=== PATIENT | female | born 1965 | race Two or more races ===

== ENCOUNTER 2016-05-11 12:12 | Emergency (ER) | payer OTHER ==
[2016-05-11 12:23] VITALS: BP 132/95; PULSE 75; TEMP 97.8; BMI 39.9
[2016-05-11] MEDS ORDERED: ALBUTEROL SO4 2.5/IPRATROPIUM 0.5 INH SOL 3 ML VIAL.NEB. NEB ONE (13:49)
--- NOTE | 2016-05-11 14:04 | PDOC ---
History of Present Illness - General Chief Complaint: Cold Symptoms Stated Complaint: COUGH, FLU LIKE SYMPTOMS Time Seen by Provider: 05/11/16 13:22 History Source: Patient Exam Limitations: No Limitations - History of Present Illness Initial Comments: 05/11/16 13:59 50 yr female obese history of HTN, high cholesterol, hypthyroid, depression, presents with cough for 2 weeks. Pt finihsed a Zpack yesterday and still having cough. no fever no chest pain, has mild exp wheezing. Timing/Duration: reports: intermittent Severity: reports: mild Possible Cause: Yes: occasional episodes (bronchitis) Associated Symptoms: reports: cough Past History - Past Medical History Allergies/Adverse Reactions: Allergies Allergy/AdvReac Type Severity Reaction Status Date / Time No Known Allergies Allergy Verified 05/11/16 12:23 Home Medications: Ambulatory Orders Aspirin [Aspirin EC] 81 mg PO DAILY 04/02/15 Doxepin HCl [Sinequan -] 10 mg PO DAILY 04/02/15 Haloperidol [Haldol -] 5 mg PO DAILY 04/02/15 Levothyroxine [Synthroid -] 100 mcg PO DAILY 04/02/15 [place] Carbonate [Eskalith -] 450 mg PO DAILY 04/02/15 Metformin HCl [Glucophage] 500 mg PO BID #30 tablet 04/02/15 Sertraline HCl [Zoloft] 100 mg PO DAILY 04/02/15 Lisinopril/Hydrochlorothiazide [Lisinopril-Hctz 10-12.5 mg Tab] 0 each PO ASDIR 10/09/15 Glipizide [Glucotrol -] 5 mg PO BID@0700,1630 #60 tablet 10/11/15 Miconazole Nitrate [Monistat-7 Vaginal Cream -] 1 applic VG HS #1 tube 10/11/15 Miconazole Nitrate [Monistat-7] 100 mg PV HS #1 supp.vag 10/11/15 Albuterol Sulfate Inhaler - [Ventolin Hfa Inhaler -] 1 - 2 inh PO QID #1 inhaler 05/11/16 Prednisone [Deltasone -] 20 mg PO DAILY #3 tablet 05/11/16 Diabetes: Yes HTN: Yes Hypercholesterolemia: Yes Psychiatric Problems: Yes (depression) Thyroid Disease: Yes Other medical history: bronchitis - Surgical History Abdominal Surgery: Yes (HERNIA) - Immunization History Immunization Up to Date: Yes - Psycho/Social/Smoking Cessation Hx Anxiety: No Suicidal Ideation: No Smoking History: Never smoked Have you smoked in the past 12 months: No Information on smoking cessation initiated: No Hx Alcohol Use: No Drug/Substance Use Hx: No Substance Use Type: None Respiratory Specific PMHX - Complaint Specific PMHX Bronchitis: Yes Review of Systems - Review of Systems Able to Perform ROS?: Yes Is the patient limited Estonian proficient: No Constitutional: Yes: Symptoms Reported Respiratory: Yes: Cough *Physical Exam - Vital Signs Last Vital Signs Temp Pulse Resp BP Pulse Ox 97.8 F 75 18 132/95 97 05/11/16 12:20 05/11/16 12:20 05/11/16 12:20 05/11/16 12:20 05/11/16 12:20 - Physical Exam General Appearance: Yes: Nourished, Appropriately Dressed, Obese HEENT: positive: EOMI, LESLEY, TMs Normal, Pharynx Normal Neck: positive: Supple. negative: Decreased range of motion, Lymphadenopathy (R ), Lymphadenopathy (L) Respiratory/Chest: positive: Chest Tender (anteriorly TTP), Wheezing Cardiovascular: positive: Regular Rhythm, Regular Rate Musculoskeletal: positive: Normal Inspection Extremity: positive: Normal Capillary Refill, Normal Inspection, Normal Range of Motion Integumentary: positive: Normal Color, Dry, Warm Neurologic: positive: Fully Oriented, Alert, Normal Mood/Affect, Normal Response , Motor Strength 5/5 ED Treatment Course - Medications Given in the ED: ED Medications Discontinued Medications Generic Name Dose Route Start Last Admin Trade Name Isaíasq PRN Reason Stop Dose Admin Albuterol/Ipratropium 1 amp 05/11/16 13:49 05/11/16 13:56 Duoneb - NEB 05/11/16 13:50 1 amp ONCE ONE Administration Medical Decision Making - Medical Decision Making 05/11/16 14:01 cc: cough wheezing afebrile no acute distress, speaking clear sentences with similair cold symptoms will give duoneb dc on ventolin inhaler 05/11/16 14:02 05/11/16 14:03 *DC/Admit/Observation/Transfer Diagnosis at time of Disposition: Bronchitis - Discharge Dispostion Disposition: HOME Condition at time of disposition: Good - Prescriptions Prescriptions: Prednisone [Deltasone -] 20 mg PO DAILY #3 tablet Albuterol Sulfate Inhaler - [Ventolin Hfa Inhaler -] 1 - 2 inh PO QID #1 inhaler - Referrals Referrals: Koko Art MD [Primary Care Provider] - - Patient Instructions Additional Instructions: drink pleanty of water follow with your doctor in 2-3 days if not feeling better use the inhaler as prescribed monitor your blood sugar while taking prednisone return to ER for any worsening symptoms
[2016-05-11] MEDS ORDERED: predniSONE 20 MG TABLET (UD) PO ONE (14:05)
[2016-05-11] MEDS ORDERED: predniSONE 20 MG TABLET (UD) ONE (14:06)
== END 2016-05-11 14:19 | disposition home or self-care (01) ==
LOC: JERFT 12:12
PROC: 3E0F7GC Introduction of Other Therapeutic Substance into Respiratory Tract, Via Natural or Artificial Opening (ICD-10-PCS; principal; 2016-05-11)
DX: J40 Bronchitis, not specified as acute or chronic (principal)
CPT/HCPCS: 99281-25

== ENCOUNTER 2016-06-27 19:34 | Emergency (ER) | payer OTHER ==
--- NOTE | 2016-06-27 19:44 | PDOC ---
Rapid Medical Evaluation Time Seen by Provider: 06/27/16 19:39 Medical Evaluation: Allergies Allergy/AdvReac Type Severity Reaction Status Date / Time No Known Allergies Allergy Verified 05/11/16 12:23 06/27/16 19:40 I have performed a brief in-person evaluation of this patient. The patient presents with a chief complaint of: cough with left sided chest pain x 3 days Pertinent physical exam findings: hx htn, dm, VSS I have ordered the following: ekg, cxr The patient will proceed to the ED for further evaluation.
[2016-06-27 19:55] VITALS: BP 134/66; PULSE 72; TEMP 97.9; BMI 40.3
[2016-06-27] MEDS ORDERED: KETOROLAC TROMETHAMINE 30 MG/1 ML VIAL IVPUSH ONE (20:13)
--- NOTE | 2016-06-27 20:13 | PDOC ---
History of Present Illness - General History Source: Patient Exam Limitations: No Limitations - History of Present Illness Initial Comments: 06/27/16 20:21 The patient is a 50 year old female with significant past medical history of hypertension, hyperlipidemia, and diabetes who presents to the ED with 3 days of left-sided chest pain. Patient reports her pain is exacerbated with movement of the left arm and no pain when she is still. Patient denies trauma to the area or heavy lifting. She denies diaphoresis, lightheadedness, SOB, jaw pain, shoulder pain, arm pain, nausea, or vomiting. She also has complaints of a worsening dry cough. The patient denies fever, chills, abdominal pain, and diarrhea. Allergies: NKDA Social History: Denies alcohol, tobacco, or drug use. Past Surgical History: hernia repair PCP: Dr. Neda Huerta <J[place]ica Joy - Last Filed: 06/27/16 20:23> - General History Source: Patient <Gilson Coppola - Last Filed: 06/27/16 22:56> - General Chief Complaint: Chest Pain Stated Complaint: RESPIRATORY Time Seen by Provider: 06/27/16 19:39 Past History <Jamaica Joy - Last Filed: 06/27/16 20:23> - Past Medical History Diabetes: Yes HTN: Yes Hypercholesterolemia: Yes Liver Disease: Yes (fatty liver) Psychiatric Problems: Yes (depression) Thyroid Disease: Yes Other medical history: arthritis - Surgical History Abdominal Surgery: Yes (HERNIA) - Immunization History Immunization Up to Date: Yes - Psycho/Social/Smoking Cessation Hx Anxiety: No Suicidal Ideation: No Smoking History: Never smoked Have you smoked in the past 12 months: No Hx Alcohol Use: No Drug/Substance Use Hx: No Substance Use Type: None <Gilson Coppola - Last Filed: 06/27/16 22:56> - Past Medical History Allergies/Adverse Reactions: Allergies Allergy/AdvReac Type Severity Reaction Status Date / Time No Known Allergies Allergy Verified 06/27/16 19:40 Home Medications: Ambulatory Orders Aspirin [Aspirin EC] 81 mg PO DAILY 04/02/15 Doxepin HCl [Sinequan -] 10 mg PO DAILY 04/02/15 Haloperidol [Haldol -] 5 mg PO DAILY 04/02/15 Levothyroxine [Synthroid -] 100 mcg PO DAILY 04/02/15 [place] Carbonate [Eskalith -] 450 mg PO DAILY 04/02/15 Metformin HCl [Glucophage] 500 mg PO BID #30 tablet 04/02/15 Sertraline HCl [Zoloft] 100 mg PO DAILY 04/02/15 Lisinopril/Hydrochlorothiazide [Lisinopril-Hctz 10-12.5 mg Tab] 0 each PO ASDIR 10/09/15 Glipizide [Glucotrol -] 5 mg PO BID@0700,1630 #60 tablet 10/11/15 Miconazole Nitrate [Monistat-7 Vaginal Cream -] 1 applic VG HS #1 tube 10/11/15 Miconazole Nitrate [Monistat-7] 100 mg PV HS #1 supp.vag 10/11/15 Albuterol Sulfate Inhaler - [Ventolin Hfa Inhaler -] 1 - 2 inh PO QID #1 inhaler 05/11/16 Prednisone [Deltasone -] 20 mg PO DAILY #3 tablet 05/11/16 Ibuprofen 800 mg PO TID #30 tablet 06/27/16 Methocarbamol [Robaxin -] 750 mg PO Q8H #30 tablet 06/27/16 Review of Systems - Review of Systems Able to Perform ROS?: Yes Comments:: 06/27/16 20:22 CONSTITUTIONAL: Absent: fever, chills, diaphoresis, generalized weakness, malaise, loss of appetite HEENT: Absent: rhinorrhea, nasal congestion, throat pain, throat swelling, difficulty swallowing, mouth swelling, ear pain, eye pain, visual Changes CARDIOVASCULAR: +left-sided chest pain Absent: syncope, palpitations, irregular heart rate, lightheadedness, peripheral edema RESPIRATORY: +cough Absent: shortness of breath, dyspnea with exertion, orthopnea, wheezing, stridor, hemoptysis GASTROINTESTINAL: Absent: abdominal pain, abdominal distension, nausea, vomiting, diarrhea, constipation, melena, hematochezia GENITOURINARY: Absent: dysuria, frequency, urgency, hesitancy, hematuria, flank pain, genital pain MUSCULOSKELETAL: Absent: myalgia, arthralgia, joint swelling SKIN: Absent: rash, itching, pallor NEUROLOGIC: Absent: headache, focal weakness or paresthesias, dizziness, unsteady gait, seizure, mental status changes, bladder or bowel incontinence PSYCHIATRIC: Absent: anxiety, depression, suicidal or homicidal ideation, hallucinations. <Jamaica Joy - Last Filed: 06/27/16 20:23> *Physical Exam - Vital Signs Last Vital Signs Temp Pulse Resp BP Pulse Ox 97.9 F 72 20 134/66 98 06/27/16 19:40 06/27/16 19:40 06/27/16 19:40 06/27/16 19:40 06/27/16 19:40 - Physical Exam Comments: 06/27/16 20:22 GENERAL: Well developed, well nourished. Awake and alert. No acute distress. HEENT: Normocephalic, atraumatic. PERRLA, EOMI. No conjunctival pallor. Sclera are non- icteric. Moist mucous membranes. Oropharynx is clear. NECK: Supple. Full ROM. No JVD. Carotid pulses 2+ and symmetric, without bruits. No thyromegaly. No lymphadenopathy. CARDIOVASCULAR: Regular rate and rhythm. No murmurs, rubs, or gallops. Distal pulses are 2+ and symmetric. PULMONARY: No evidence of respiratory distress. Lungs clear to auscultation bilaterally. No wheezing, rales or rhonchi. ABDOMINAL: Morbidly obese. Soft. Non-tender. Non-distended. No rebound or guarding. No organomegaly. Normoactive bowel sounds. MUSCULOSKELETAL Normal range of motion at all joints. No bony deformities or tenderness. No CVA tenderness. EXTREMITIES: No cyanosis. No clubbing. No edema. No calf tenderness. SKIN: Warm and dry. Normal capillary refill. No rashes. No jaundice. NEUROLOGICAL: Alert, awake, appropriate. Cranial nerves 2-12 intact. Moving all extremities. No gross focal neurological deficits. PSYCHIATRIC: Cooperative. Good eye contact. Appropriate mood and affect. <Jamaica Joy - Last Filed: 06/27/16 20:23> - Vital Signs Last Vital Signs Temp Pulse Resp BP Pulse Ox 97.9 F 72 20 134/66 98 06/27/16 19:40 06/27/16 19:40 06/27/16 19:40 06/27/16 19:40 06/27/16 19:40 <Gilson Coppola - Last Filed: 06/27/16 22:56> Heart Score/ECG Review - ECG Impressions Comment:: 06/27/16 20:22 NSR @79bpm Prolonged QT Abnormal ECG <J[place]ica Joy - Last Filed: 06/27/16 20:23> ED Treatment Course - LABORATORY CBC & Chemistry Diagram: 06/27/16 21:25 06/27/16 21:25 <Gilson Coppola - Last Filed: 06/27/16 22:56> Medical Decision Making - Medical Decision Making 06/27/16 22:56 Dr. Coppola: The scribe's documentation has been prepared under my direction and personally reviewed by me in its entirery. I confirm that the note above accurately reflects all work, treatment, procedures, and medical decision making performed by me. <Gilson Coppola - Last Filed: 06/27/16 22:56> *DC/Admit/Observation/Transfer - Attestations Scribe Attestion: 06/27/16 20:23 Documentation prepared by [place] Joy, acting as medical records supervisor for Gilson Coppola MD <J[place] Joy - Last Filed: 06/27/16 20:23> - Discharge Dispostion Admit: No <Gilson Coppola - Last Filed: 06/27/16 22:56> Diagnosis at time of Disposition: Chest wall pain - Discharge Dispostion Disposition: HOME Condition at time of disposition: Stable - Prescriptions Prescriptions: Ibuprofen 800 mg PO TID #30 tablet Methocarbamol [Robaxin -] 750 mg PO Q8H #30 tablet - Referrals Referrals: Neda Huerta [Primary Care Provider] - - Patient Instructions Printed Discharge Instructions: DI for Musculoskeletal Pain
[2016-06-27] MEDS ORDERED: KETOROLAC TROMETHAMINE 30 MG/1 ML VIAL ONE (21:25)
[2016-06-27 22:19] LABS: BASOPHIL 0.8 % (0-2.0); EOSINOPHIL 2.6 % (0-4.5); MCH 24.6 pg (25.7-33.7); MCHC 32.1 g/dl (32.0-36.0); MEAN CELL VOLUME 76.6 fl (80-96); MEAN PLT VOLUME 8.9 fl (7.5-11.1); PLATELET COUNT 212 K/MM3 (134-434); RDW 15.5 % (11.6-15.6); WHITE BLOOD COUNT 9.4 K/mm3 (4.0-10.0)
[2016-06-27 22:34] LABS: ALBUMIN 3.6 g/dl (3.4-5.0); ANION GAP 8 (8-16); CALCIUM 9.1 mg/dL (8.5-10.1); CO2 29 mmol/L (21-32); CREATININE 0.7 mg/dL (0.55-1.02); GLUCOSE,RANDOM 275 mg/dL (74-106); SGOT/AST 54 U/L (15-37); SGPT/ALT 68 U/L (12-78)
[2016-06-27 22:38] LABS: ALK PHOS 141 U/L (45-117); BILIRUBIN,TOTAL 0.2 mg/dL (0.2-1.0); TOT PROT 7.4 g/dl (6.4-8.2); TROPONIN I < 0.02 ng/ml (0.00-0.05)
--- NOTE | 2016-06-28 14:16 | EKG ---
Test Reason : Blood Pressure : / mmHG Vent. Rate : 079 BPM Atrial Rate : 079 BPM P-R Int : 152 ms QRS Dur : 084 ms QT Int : 420 ms P-R-T Axes : 037 017 030 degrees QTc Int : 481 ms NORMAL SINUS RHYTHM PROLONGED QT ABNORMAL ECG WHEN COMPARED WITH ECG OF 09-OCT-2015 16:38, NONSPECIFIC T WAVE ABNORMALITY HAS REPLACED INVERTED T WAVES IN ANTERIOR LEADS Confirmed by ELIA WALKER, VENANCIO ([id number]) on 06/28/2016 2:15:43 PM Referred By: Confirmed By:VENANCIO RODRIGEZ MD
== END 2016-06-27 23:08 | disposition home or self-care (01) ==
LOC: JER 19:34
PROC: 3E0333Z Introduction of Anti-inflammatory into Peripheral Vein, Percutaneous Approach (ICD-10-PCS; principal; 2016-06-27)
DX: R07.89 Other chest pain (principal); I10 Essential (primary) hypertension; E78.5 Hyperlipidemia, unspecified; E11.9 Type 2 diabetes mellitus without complications; K76.0 Fatty (change of) liver, not elsewhere classified; F32.9 Major depressive disorder, single episode, unspecified; E07.9 Disorder of thyroid, unspecified; E66.01 Morbid (severe) obesity due to excess calories; Z68.41 Body mass index [BMI] 40.0-44.9, adult
CPT/HCPCS: 36415; 71020-TC; 80053; 82550; 82553; 84484; 85025; 93005; 93010; 96374; 99283-25

== ENCOUNTER 2017-06-01 19:00 | Emergency (ER) | payer OTHER ==
--- NOTE | 2017-06-01 19:16 | PDOC ---
Rapid Medical Evaluation Time Seen by Provider: 06/01/17 19:12 Medical Evaluation: Allergies Allergy/AdvReac Type Severity Reaction Status Date / Time No Known Allergies Allergy Verified 06/27/16 19:40 I have performed a brief in-person evaluation of this patient. The patient presents with a chief complaint of: headache on and off for "a long time". Pertinent physical exam findings: none I have ordered the following: nothing The patient will proceed to the ED for further evaluation.
[2017-06-01 19:17] VITALS: BP 118/73; PULSE 77; TEMP 98; BMI 37.2
[2017-06-01] MEDS ORDERED: IBUPROFEN 600 MG TABLET (FP) PO ONE ×2 (19:34→19:36)
--- NOTE | 2017-06-01 19:38 | PDOC ---
History of Present Illness - General Chief Complaint: Headache Stated Complaint: HEADACHE Time Seen by Provider: 06/01/17 19:12 History Source: Patient Exam Limitations: No Limitations - History of Present Illness Initial Comments: 06/01/17 19:34 51 yr female multiple medical problems presents to ER with one year on and off headache to the back of her head. Pt has no headache now. Pt states she came to the ER today because her is a patient in the ER. Pt has no fever no chills no dizzyness. Pt ambulatory with steady gait. 06/03/17 07:48 Past History - Past Medical History Allergies/Adverse Reactions: Allergies Allergy/AdvReac Type Severity Reaction Status Date / Time No Known Allergies Allergy Verified 06/27/16 19:40 Home Medications: Ambulatory Orders Aspirin [Aspirin EC] 81 mg PO DAILY 04/02/15 Doxepin HCl [Sinequan -] 10 mg PO DAILY 04/02/15 Haloperidol [Haldol -] 5 mg PO DAILY 04/02/15 Levothyroxine [Synthroid -] 100 mcg PO DAILY 04/02/15 [place] Carbonate [Eskalith -] 450 mg PO DAILY 04/02/15 Metformin HCl [Glucophage] 500 mg PO BID #30 tablet 04/02/15 Sertraline HCl [Zoloft] 100 mg PO DAILY 04/02/15 Lisinopril/Hydrochlorothiazide [Lisinopril-Hctz 10-12.5 mg Tab] 0 each PO ASDIR 10/09/15 Glipizide [Glucotrol -] 5 mg PO BID@0700,1630 #60 tablet 10/11/15 Miconazole Nitrate [Monistat-7 Vaginal Cream -] 1 applic VG HS #1 tube 10/11/15 Miconazole Nitrate [Monistat-7] 100 mg PV HS #1 supp.vag 10/11/15 Albuterol Sulfate Inhaler - [Ventolin Hfa Inhaler -] 1 - 2 inh PO QID #1 inhaler 05/11/16 predniSONE [Deltasone -] 20 mg PO DAILY #3 tablet 05/11/16 Ibuprofen 800 mg PO TID #30 tablet 06/27/16 Methocarbamol [Robaxin -] 750 mg PO Q8H #30 tablet 06/27/16 COPD: No Diabetes: Yes HTN: Yes Hypercholesterolemia: Yes Liver Disease: Yes (fatty liver) Psychiatric Problems: Yes (depression) Thyroid Disease: Yes - Surgical History Abdominal Surgery: Yes - Immunization History Immunization Up to Date: Yes - Suicide/Smoking/Psychosocial Hx Smoking History: Never smoked Have you smoked in the past 12 months: No Information on smoking cessation initiated: No Hx Alcohol Use: No Drug/Substance Use Hx: No Substance Use Type: None Neuro Specific PMHX - Complaint Specific PMHX Glaucoma: No Herniated Disk: No Laminectomy: No Migraine: No Multiple Sclerosis: No Neuropathy: No TIA: No Review of Systems - Review of Systems Able to Perform ROS?: Yes Is the patient limited [place] proficient: No Constitutional: No: Symptoms Reported HEENTM: No: Symptoms Reported Respiratory: No: Symptoms reported Cardiac (ROS): No: Symptoms Reported ABD/GI: No: Symptoms Reported : No: Symptoms Reported Musculoskeletal: No: Symptoms Reported Integumentary: No: Symptoms Reported Neurological: Yes: Symptoms reported *Physical Exam - Vital Signs Last Vital Signs Temp Pulse Resp BP Pulse Ox 98 F 77 17 118/73 97 06/01/17 19:14 06/01/17 19:14 06/01/17 19:14 06/01/17 19:14 06/01/17 19:14 - Physical Exam General Appearance: Yes: Nourished, Appropriately Dressed HEENT: positive: EOMI, LESLEY, TMs Normal, Pharynx Normal, Nasal Congestion (mild) . negative: Sinus Tenderness, Hearing Decreased, TM Bulging, TM Dull, TM Erythema Neck: positive: Supple. negative: Tender, Lymphadenopathy (R), Lymphadenopathy (L) Respiratory/Chest: positive: Lungs Clear, Normal Breath Sounds Cardiovascular: positive: Regular Rhythm, Regular Rate Musculoskeletal: positive: Normal Inspection, Other (neg vetebral tenderness, FROM of the neck and head without pain ). negative: Vertebral Tenderness Extremity: positive: Normal Capillary Refill, Normal Inspection, Normal Range of Motion Integumentary: positive: Normal Color, Dry, Warm Neurologic: positive: executive meeting manager II-XII NML intact, Fully Oriented, Alert, Normal Mood/ Affect, Normal Response, Motor Strength 5/5, Finger to Nose (intact, neg rhomberg steady gait ), Other. negative: Facial Droop, Confused, Disoriented Medical Decision Making - Medical Decision Making 06/03/17 07:51 cc: one year on and off headaches, pt states the back of her head "where my ponytail is" intermittent headaches, denies any pattern however pt states at night they are worse pt has no headache at present pt has stable vitals no dizzyness, no neck pain no changes in vision pt has mild nasal congestion and mild sinus pressure no fever pt is to follow with her PMD I have also given her a neurologist name to follow with daughter and pt agree with plan of care dc with strict inst for follow up there is no indication for a head CT in the ER today, as pt is asymptomatic. *DC/Admit/Observation/Transfer Diagnosis at time of Disposition: Headache Qualifiers: Headache type: tension-type Headache chronicity pattern: unspecified pattern Intractability: not intractable Qualified Code(s): G44.209 - Tension-type headache, unspecified, not intractable - Discharge Dispostion Disposition: HOME Condition at time of disposition: Good - Referrals Referrals: Quynh Hunt MD [Primary Care Provider] - Tato To MD [Staff Physician] - - Patient Instructions Additional Instructions: drink pleanty of fluids take motrin 600mg every 8hrs for headache please follow with the neurologist if headaches continue or worsen - Post Discharge Activity
== END 2017-06-01 19:52 | disposition home or self-care (01) ==
LOC: JERFT 19:00
DX: G44.209 Tension-type headache, unspecified, not intractable (principal); I10 Essential (primary) hypertension; E11.9 Type 2 diabetes mellitus without complications; Z79.84 Long term (current) use of oral hypoglycemic drugs; F32.9 Major depressive disorder, single episode, unspecified; E03.9 Hypothyroidism, unspecified
CPT/HCPCS: 99281-25

== ENCOUNTER 2018-10-17 16:39 | Observation (INO) | payer OTHER ==
[2018-10-17 16:53] VITALS: BMI 31.6
--- NOTE | 2018-10-17 16:53 | PDOC ---
Rapid Medical Evaluation Time Seen by Provider: 10/17/18 16:46 Medical Evaluation: Allergies Allergy/AdvReac Type Severity Reaction Status Date / Time No Known Allergies Allergy Verified 06/27/16 19:40 10/17/18 16:46 I have performed a brief in-person evaluation of this patient. The patient presents with a chief complaint of: sent from PMD for overdose of INsulin-BASAGLAR- long acting insulin states may have taken ~ 100units ~ 3 hours ago, Pertinent physical exam findings: alert/ oriented / states has headache./ I have ordered the following: CBC, CMP, Acetone, IV The patient will proceed to the ED for further evaluation. Discharge Disposition - Diagnosis Overdose Qualifiers: Encounter type: initial encounter Injury intent: accidental or unintentional Qualified Code(s): T50.901A - Poisoning by unspecified drugs, medicaments and biological substances, accidental (unintentional), initial encounter - Referrals - Patient Instructions - Post Discharge Activity
[2018-10-17 17:46] LABS: BASO % 0.7 % (0-2.0); EOS % 1.7 % (0-4.5); HEMATOCRIT 43.2 % (32.4-45.2); HEMOGLOBIN 14.1 GM/dL (10.7-15.3); LYMPH % 42.3 % (8-40); MCH 24.5 pg (25.7-33.7); MCHC 32.8 g/dl (32.0-36.0); MEAN CELL VOLUME 74.8 fl (80-96); MEAN PLT VOLUME 9.1 fl (7.5-11.1); MONO % 5.4 % (3.8-10.2); NEUT % 49.9 % (42.8-82.8); PLATELET COUNT 177 K/MM3 (134-434); RBC 5.77 M/mm3 (3.60-5.2); WHITE BLOOD COUNT 6.3 K/mm3 (4.0-10.0)
--- NOTE | 2018-10-17 18:01 | PDOC ---
History of Present Illness - General Chief Complaint: Overdose Stated Complaint: LOW BLOOD SUGAR Time Seen by Provider: 10/17/18 16:46 History Source: Patient Exam Limitations: No Limitations - History of Present Illness Initial Comments: 10/17/18 17:29 53YOF with h/o IDDM (just started on Lantus 15U qAM this morning but also has been taking Januvia, metformin, and glipizide), HTN, HLD, and hypothyroidism who presents from Urgent Care as directed. She and her state that they were using her new Lantus SoloStar 100 U/mL solution pen-injector for the first time this morning when the believed he was supposed to twist the cap all the way out before injecting her, so he did this. He subsequently called the pharmacy and explained what he had done, and they determined that he had injected the entire contents of the pen (3 mL of the 100U/mL solution totaling 300U). The patient states she feels like her blood sugar is getting lower ( slight shakes/tremors) but she does not feel bad. They deny that this was in any way purposeful. Otherwise the patient has been feeling well lately. She does not check her blood sugar at home and thus did not check before the insulin injection. Past History - Past Medical History Allergies/Adverse Reactions: Allergies Allergy/AdvReac Type Severity Reaction Status Date / Time No Known Allergies Allergy Verified 10/17/18 16:47 Home Medications: Ambulatory Orders Aspirin 81 mg PO DAILY 10/17/18 Atorvastatin Ca [Lipitor] 20 mg PO HS 10/17/18 Fluconazole [Diflucan] 150 mg PO ONCE 10/17/18 Gabapentin 300 mg PO BID 10/17/18 Glipizide [Glipizide ER] 10 mg PO BID 10/17/18 Levothyroxine [Synthroid -] 112 mcg PO DAILY 10/17/18 Lisinopril/Hydrochlorothiazide [Lisinopril-Hctz 10-12.5 mg Tab] 1 each PO DAILY 10/17/18 [place] Carbonate [Eskalith -] 450 mg PO BID 10/17/18 Metformin HCl [Glucophage] 1,000 mg PO BID 10/17/18 Multivitamins [Tab-A-Vit -] 1 tab PO DAILY 10/17/18 Sertraline HCl [Zoloft] 200 mg PO DAILY 10/17/18 Sitagliptin Phosphate [Januvia] 100 mg PO DAILY 10/17/18 Zolpidem Tartrate 10 mg PO DAILY 10/17/18 Doxepin HCl [Sinequan -] 10 mg PO DAILY 10/18/18 COPD: No Diabetes: Yes HTN: Yes Hypercholesterolemia: Yes Liver Disease: Yes (fatty liver) Psychiatric Problems: Yes (depression) Thyroid Disease: Yes - Surgical History Abdominal Surgery: Yes - Immunization History Immunization Up to Date: Yes - Suicide/Smoking/Psychosocial Hx Smoking History: Never smoked Have you smoked in the past 12 months: No Hx Alcohol Use: No Drug/Substance Use Hx: No Substance Use Type: None Review of Systems - Review of Systems Able to Perform ROS?: Yes Comments:: 10/17/18 18:02 GEN: no fever, chills, malaise, generalized weakness, or weight change HEENT: no ear pain, sore throat, vision change, or eye pain CV: no chest pain, palpitations, lightheadedness, syncope, or edema RESP: no cough, wheezing, or SOB GI: no abdominal pain, nausea, vomiting, diarrhea, constipation, or white/black/ bloody stool : no dysuria, hematuria, incontinence, retention, bleeding, or discharge MSK: no neck/back pain, muscle weakness/pain, or joint swelling/pain NEURO: slight shakes, no headache, seizure, vertigo, numbness, tingling, or focal weakness PSYCH: no substance use, no behavior change SKIN: no jaundice, no rash ROS otherwise negative except as noted in HPI *Physical Exam - Vital Signs Last Vital Signs Temp Pulse Resp BP Pulse Ox 97.9 F 67 18 147/85 100 10/17/18 16:47 10/17/18 16:47 10/17/18 16:47 10/17/18 16:47 10/17/18 16:47 - Physical Exam Comments: 10/17/18 18:03 GENERAL: well-appearing, pleasant and [place]olan speaking, A/Ox4, no distress, answers questions appropriately, morbidly obese, at bedside who is supportive HEENT: PERRLA, EOMI, moist mucous membranes NECK/BACK: no midline ttp, no spinal stepoff or deformity, no hematoma, full ROM , neck supple CARDIOVASCULAR: regular rate/rhythm, normal S1S2, no MGR, strong peripheral pulses, capillary refill <2 seconds, extremities wwp, no edema LUNGS/RESPIRATORY: no respiratory distress, CTAB GI/ABDOMEN: symmetric vowd-xd-odnx, normoactive BS, soft, no ttp, no midline pulsatile masses : no CVA tenderness EXTREMITIES: no muscle atrophy, no acute deformity SKIN: warm and dry, no pallor, no jaundice, no rash, no bruising, no skin breakdown, no cuts, no lesions NEUROLOGICAL: GCS 15, CN II-XII grossly intact, 5/5 strength proximally and distally, no facial droop Heart Score/ECG Review #1 10/18/18 19:19 Sinus rhythm, rate 61, normal axis and intervals, no ischemic ST-T changes ED Treatment Course - LABORATORY CBC & Chemistry Diagram: 10/17/18 17:20 10/18/18 17:10 - ADDITIONAL ORDERS Additional order review: Laboratory Results 10/17/18 16:57 POC Glucometer 300 10/17/18 16:57 POC Glucometer 300 Medical Decision Making - Medical Decision Making 10/17/18 18:03 53YOF p/w long-acting insulin overdose. Initial Vital Signs Temp Pulse Resp BP Pulse Ox 97.9 F 67 18 147/85 100 10/17/18 16:47 10/17/18 16:47 10/17/18 16:47 10/17/18 16:47 10/17/18 16:47 FSBG initially is 300 (at 4:57pm) Exam: As noted in Physical Exam section. Mental status Exam: As noted in Physical Exam section.denies self harm attempt, SI/HI, plan, or SI/HI history DDX IBNLT: overdose, overuse, medication interaction, change in medication metabolism, coingestion, etc W/U ordered: CBCD CMP Mg Phos UA UCx UDS Tylenol/ Salicylate/EtOH level EKG CXR. FSBG is 256 (at 5:57pm); patient given orange juice x3 containers, minimal symptoms. 10/17/18 18:10 I spoke with [facility], rep [facility][id number]. They state she needs 24 hour observation. They recommend FSBG (q1h for 6 hours, then q2h after that; and more frequently if she develops symptoms). They also recommend checking K, Mg, and Phos (q4-6 hours and more if she develops sxs). EKG: Reviewed; results as noted in ECG Review section. Laboratory Tests 10/17/18 10/17/18 10/17/18 16:57 17:20 17:20 WBC 6.3 RBC 5.77 H Hgb 14.1 Hct 43.2 MCV 74.8 L MCH 24.5 L MCHC 32.8 RDW 14.0 Plt Count 177 MPV 9.1 Absolute Neuts (auto) 3.1 Neutrophils % 49.9 Lymphocytes % 42.3 H D Monocytes % 5.4 Eosinophils % 1.7 Basophils % 0.7 Nucleated RBC % 0 PT with INR 12.90 INR 1.09 Sodium Potassium Chloride Carbon Dioxide Anion Gap BUN Creatinine Est GFR (CKD-EPI)AfAm Est GFR (CKD-EPI)NonAf POC Glucometer 300 Random Glucose Calcium Total Bilirubin AST ALT Alkaline Phosphatase Total Protein Albumin 10/17/18 10/17/18 17:20 17:57 WBC RBC Hgb Hct MCV MCH MCHC RDW Plt Count MPV Absolute Neuts (auto) Neutrophils % Lymphocytes % Monocytes % Eosinophils % Basophils % Nucleated RBC % PT with INR INR Sodium 131 L Potassium 4.1 Chloride 99 Carbon Dioxide 27 Anion Gap 5 L BUN 7.3 Creatinine 0.5 L Est GFR (CKD-EPI)AfAm 128.07 Est GFR (CKD-EPI)NonAf 110.50 POC Glucometer 236 Random Glucose 261 H Calcium 9.0 Total Bilirubin 0.5 AST 29 ALT 35 Alkaline Phosphatase 160 H Total Protein 7.0 Albumin 3.4 10/17/18 18:20 The Pt is unsafe for discharge at this time. They require further hospital observation, workup, and treatment. Microblog sent to [facility] for admission. Blank Decision to Admit order is placed per ED protocol. 10/17/18 19:28 I spoke with Marcela Garza; patient going to IP Med/Surg to Dr. Neumann. Decision to Admit corrected. *DC/Admit/Observation/Transfer Diagnosis at time of Disposition: Insulin overdose Qualifiers: Encounter type: initial encounter Injury intent: undetermined intent Qualified Code(s): T38.3X4A - Poisoning by insulin and oral hypoglycemic [antidiabetic] drugs, undetermined, initial encounter - Discharge Dispostion Condition at time of disposition: Guarded Decision to Admit order: Yes - Referrals - Patient Instructions - Post Discharge Activity
[2018-10-17 18:04] LABS: INR 1.09 (0.83-1.09); PROTHROMBIN TIME (PATIENT) 12.9 SEC (9.7-13.0)
[2018-10-17 18:16] LABS: ALBUMIN 3.4 g/dl (3.4-5.0); ALK PHOS 160 U/L (45-117); ANION GAP 5 MMOL/L (8-16); BILIRUBIN,TOTAL 0.5 mg/dL (0.2-1); BLOOD UREA NITROGEN 7.3 mg/dL (7-18); CHLORIDE 99 mmol/L (98-107); CO2 27 mmol/L (21-32); CREATININE 0.5 mg/dL (0.55-1.3); GLUCOSE,RANDOM 261 mg/dL (74-106); POTASSIUM 4.1 mmol/L (3.5-5.1); SGOT/AST 29 U/L (15-37); SGPT/ALT 35 U/L (13-61); SODIUM 131 mmol/L (136-145)
--- NOTE | 2018-10-17 18:49 | PDOC ---
Documentation entered by Sven Woodard SCRIBE, acting as scribe for Kaleb Cherry MD. Kaleb Cherry MD: This documentation has been prepared by the Yamilet white Elijah, SCRIBE, under my direction and personally reviewed by me in its entirety. I confirm that the documentation accurately reflects all work, treatment, procedures, and medical decision making performed by me. Attending Attestation - Resident Resident Name: HenleyStella - ED Attending Attestation I have performed the following: I have examined & evaluated the patient, The case was reviewed & discussed with the resident, I agree w/resident's findings & plan - HPI HPI: 10/17/18 18:33 The patient is a 53 year old female with a significant past medical history of IDDM HTN, HLD, and hypothyroidism who presents to the ED s/p overdose. As per at bedside, the patient was starting a new pen-insulin treatment of Lantus SoloStar and at 1pm the accidentally administered 3 times the dosage. Patient was seen at urgent care and told to come to the ED. Patient reports being asymptomatic at this time with the exception of a head pain that feels like pressure behind the skull. Denies fever, chills, nausea, CP, SOB, abdominal pain Allergies:NKA PCP: Dr. Hsu - Physicial Exam PE: 10/17/18 18:17 GENERAL: The patient is awake, alert, and fully oriented, Nontoxic - in no acute distress. HEAD: Normocephalic, atraumatic. EYES: extraocular movements intact, sclera anicteric, conjunctiva clear. ENT: Normal voice, Moist mucous membranes. NECK: Normal range of motion, supple LUNGS: Breath sounds equal, clear to auscultation bilaterally. No wheezes, no rhonchi, no rales. HEART: Regular rate and rhythm, normal S1 and S2 without murmur, rub or gallop. ABDOMEN: Soft, nontender, No guarding, no rebound. No CVA tenderness EXTREMITIES: Normal range of motion, no edema. NEUROLOGICAL: No facial assymetry, Normal speech, PSYCH: Normal mood, normal affect. SKIN: Warm, Dry, normal turgor, - Medical Decision Making 10/17/18 18:17 53-year-old female history of diabetes formerly on oral medications, started today on injectable insulin presents with inadvertent insulin overdose. The insulin was administered by her who was unfamiliar with the pen and injected Lantus SoloStar 300 units of insulin at around 1pm. Pt is currently asymtomatic. Pts had BGMs drawn that was formerly in 300s, most recently at 240 will continue to monitor her blood sugar, electrolytes, ekg anticipate observation due to long acting nature of lantus Heart Score/ECG Review - ECG Impressions Comment:: 10/17/18 18:22 Twelve-lead EKG was performed and reviewed by me. There is normal sinus rhythm with a normal rate. Rate of 61 The axis is normal. The intervals are normal. There is normal R wave progression There are no ST or T wave abnormalities. Impression: Normal twelve-lead EKG
--- NOTE | 2018-10-17 19:28 | HP ---
Admitting History and Physical - Primary Care Physician PCP: Dr Zayra Boyer - Admission Chief Complaint: Insulin overdose History of Present Illness: pt is a 53YOF with h/o IDDM (started Lantus 15U qAM this am), HTN, HLD, and hypothyroidism, bipolar disorder, severe depression, fatty liver, presenting from her doctor's office after accidental overdose of insulin glargine using the pen around 1pm today. Per pt's who was at the bedside and administered the injection, pt's glucose has been uncontrolled, although they do not routinely do fingersticks at home and were prescribed the insulin pen which was picked up yesterday and administered for the first time today without pre-insulin fingerstick. The dose should have been Lantus 15u sq am, but pt's reported twisting the pen completely until her injected the full 3ml of the 100/ml pen. He immediately called the pharmacist, who asked him to contact his PCP. They were at the PCP's today till up to about 2.30pm and had fingersticks that showed glu of 302. Immediately after the injection, pt reported feeling a funny sensation at the back of her head that has since resolved. After the insulin injection, pt immediately had some vegetables (pt became vegetarian 5 months ago) and has continued to eat since then. No blurry vision, no seizures, no loss of consciousness. In the ED, BGM showed 300>>236>> 284>>298. Pt was reported to have started feeling hungry at 236 glucose with slight shakes/tremors while in the Ed, she was given food and the symptoms have resolved. Per pt, she last took oral hypoglycemics (Januvia, metformin, and glipizide), last night and has only taken the insulin via pen today. Pt follows her PCP closely with last visit less than a month ago. Pt has been on disability due to severe depression, necessitating her to give up her son (now 11years old ) for adoption. She denies suicidal or homicidal ideations and has the support of her beside her. ED called poison control and they recommended monitoring the pt for 24hrs, with BGMs q1h x 6 hrs, the q2hs, with BMPs, k, mag and phosh Q4-6H. EKG_NSR-61bpm, nl axis, nl intervals. no ISABELLA/STD-QTC-467 Na-131, glu-261, ALP-160 Social Hx Independent ADLS On disability due to mental health issues Lives with and 12 year old daughter Has 2 grown kids (in their 30s) and 1 son 11years (given up for adoption) FHx Mother of breast cancer at 49 Sister with Dm History Source: Patient, Family Member, Medical Record Limitations to Obtaining History: No Limitations - Past Medical History Cardiovascular: Yes: HTN Gastrointestinal: Yes: Other (Fatty Liver) Endocrine: Yes: Diabetes Mellitus, Hypothyroidism - Smoking History Smoking history: Never smoked Have you smoked in the past 12 months: No - Alcohol/Substance Use Hx Alcohol Use: No - Social History Usual Living Arrangement: Yes: With Spouse, With Child ADL: Independent Home Medications - Allergies Allergies/Adverse Reactions: Allergies Allergy/AdvReac Type Severity Reaction Status Date / Time No Known Allergies Allergy Verified 10/17/18 16:47 - Home Medications Home Medications: Ambulatory Orders Aspirin 81 mg PO DAILY 10/17/18 Atorvastatin Ca [Lipitor] 20 mg PO HS 10/17/18 Fluconazole [Diflucan] 150 mg PO ONCE 10/17/18 Gabapentin 300 mg PO BID 10/17/18 Glipizide [Glipizide ER] 10 mg PO BID 10/17/18 Levothyroxine [Synthroid -] 112 mcg PO DAILY 10/17/18 Lisinopril/Hydrochlorothiazide [Lisinopril-Hctz 10-12.5 mg Tab] 1 each PO DAILY 10/17/18 [place] Carbonate [Eskalith -] 450 mg PO BID 10/17/18 Metformin HCl [Glucophage] 1,000 mg PO BID 10/17/18 Multivitamins [Tab-A-Vit -] 1 tab PO DAILY 10/17/18 Sertraline HCl [Zoloft] 200 mg PO DAILY 10/17/18 Sitagliptin Phosphate [Januvia] 100 mg PO DAILY 10/17/18 Zolpidem Tartrate 10 mg PO DAILY 10/17/18 Doxepin HCl [Sinequan -] 10 mg PO DAILY 10/18/18 Family Disease History - Family Disease History Family Disease History: CA: Mother (Breast Ca) Review of Systems - Review of Systems Constitutional: denies: Chills, Diaphoresis, Fever, Lethargy, Loss of Appetite, Night Sweats Eyes: denies: Blurred Vision HENT: denies: Difficult Swallowing Neck: denies: Stiffness Cardiovascular: denies: Chest Pain, Edema Respiratory: denies: Cough, SOB Gastrointestinal: denies: Abdominal Pain Genitourinary: reports: Frequency. denies: Burning, Dysuria Musculoskeletal: denies: Back Pain Neurological: reports: Tremors (Shakiness earlier). denies: Change in Speech, Incoordination, Numbness, Parasthesia, Pre-Existing Deficit, Seizure, Syncope, Unsteady Gait Endocrine: denies: Excessive Sweating, Flushing Psychiatric: reports: Depression. denies: Suicidal Physical Examination Vital Signs: Vital Signs Temperature 97.9 F 10/17/18 16:47 Pulse Rate 67 10/17/18 16:47 Respiratory Rate 18 10/17/18 16:47 Blood Pressure 147/85 10/17/18 16:47 O2 Sat by Pulse Oximetry (%) 100 10/17/18 16:47 Constitutional: Yes: No Distress, Calm Eyes: Yes: Conjunctiva Clear, EOM Intact HENT: No: Atraumatic Neck: Yes: Supple Cardiovascular: Yes: Regular Rate and Rhythm, S1, S2 Respiratory: Yes: CTA Bilaterally Gastrointestinal: Yes: Normal Bowel Sounds, Soft. No: Tenderness Renal/: No: Anuria, CVA Tenderness - Left, CVA Tenderness - Right Edema: No Peripheral Pulses WNL: Yes Neurological: Yes: Alert, Oriented, Babinski negative. No: Aphasia, Confusion, Dysarthria, Facial Droop, Pre-Existing Deficit, Seizure, Tremors ...Motor Strength: WNL Psychiatric: Yes: Alert, Oriented. No: Suicidal Ideation Labs: CBC, BMP 10/17/18 17:20 10/17/18 17:20 Assessment/Plan Ambulatory Orders Aspirin 81 mg PO DAILY 10/17/18 Atorvastatin Ca [Lipitor] 20 mg PO HS 10/17/18 Fluconazole [Diflucan] 150 mg PO ONCE 10/17/18 Gabapentin 300 mg PO BID 10/17/18 Glipizide [Glipizide ER] 10 mg PO DAILY 10/17/18 Insulin Glargine,Hum.rec.anlog [Lantus] 15 unit SQ DAILY 10/17/18 Levothyroxine [Synthroid -] 112 mcg PO DAILY 10/17/18 Lisinopril/Hydrochlorothiazide [Lisinopril-Hctz 10-12.5 mg Tab] 1 each PO DAILY 10/17/18 [place] Carbonate [Eskalith -] 450 mg PO BID 10/17/18 Metformin HCl [Glucophage] 1,000 mg PO BID 10/17/18 Multivitamins [Tab-A-Vit -] 1 tab PO DAILY 10/17/18 Sertraline HCl [Zoloft] 200 mg PO DAILY 10/17/18 Sitagliptin Phosphate [Januvia] 100 mg PO DAILY 10/17/18 Zolpidem Tartrate 10 mg PO DAILY 10/17/18 pt is a 53YOF with h/o IDDM (started Lantus 15U qAM this am), HTN, HLD, and hypothyroidism, bipolar disorder, severe depression, fatty liver, presenting from her doctor's office after accidental overdose of insulin glargine using the pen around 1pm today. #Accidental insulin overdose No documented suicidal/homicidal ideation Per , prior use ever, tried to figure it out on his own Pt has remained over 200s, unsure what her blood glucose range normally is Pt has been eating since the injection, unclear hypoglycemic episodes reported earlier around 238 Will make pt NPO now and monitor BGM q1h till 1am (for glucose drop) Will do stat BMP, mg and phos repeat BMP, mg and phosh Neurochecks, monitor for hypoglycemic symptoms Fall precautions, seizure precautions Hold off any insulin or oral hypoglycemic agents HTN Blood pressure relatively controlled Will hold off BP meds to avoid masking hypoglycemic symptoms if they occur Monitor HLD On lipitor, Cont hypothyroidism Cont in am bipolar disorder/severe depression Cont haldol/lithium/zoloft fatty liver No abdominal complaints Isolated elevated ALP, no transaminases, will cont to monitor Obesity Dietary advise/ exercise counselling Obs-medsurg Pt should be ready to dc home if no persistent hypoglycemia up to 1am FEN No standing fluids Monitor lytes- glu q1h till midnight then q2h BMP, mg, phosp now, then repeat NPO for now Will reassess Visit type - Emergency Visit Emergency Visit: Yes ED Registration Date: 10/17/18 Care time: The patient presented to the Emergency Department on the above date and was hospitalized for further evaluation of their emergent condition. - New Patient This patient is new to me today: Yes Date on this admission: 10/17/18 - Critical Care Critical Care patient: No
[2018-10-17 19:29] LABS: ACETONE SERUM NEGATIVE (NEGATIVE)
--- NOTE | 2018-10-17 20:03 | PN ---
Teaching Attending Note Name of Resident: Marcela Garza ATTENDING PHYSICIAN STATEMENT I saw and evaluated the patient. I reviewed the resident's note and discussed the case with the resident. I agree with the resident's findings and plan as documented. SUBJECTIVE: Seen and examined; please refer to resident note for further historical information. Presents with stated unintentional insulin overdose; she has a PMH of psych issues (causign dissability), HTN, HLD, etc. She is unclear on the time she took the insulin but estimates it to be prior to 1P; her accordingly accidently injected what is postulated to be the entire contents of the pen (=300U). Initial glucose 4P at high 200s with potential pseudohyponatremia and did lower to 230 then return to high 200s. States some hypoglycemic sx at home but none here and no documented hypoglycemic episodes. Unknown A1c. ER spoke to poison control who recommended 24 hours observation. She is afebrile, hemodynamically stable, mentating well, and denies SI/HI. Denies taking any PO antihyperglycemics today. She is a poorly controlled diabetic. 10 sys ROS done and negative aside from HPI PMH, PSH, FH, SH reviewed Home Medications Medication Instructions Recorded Aspirin 81 mg PO DAILY 10/17/18 Atorvastatin Ca [Lipitor] 20 mg PO HS 10/17/18 Fluconazole [Diflucan] 150 mg PO ONCE 10/17/18 Gabapentin 300 mg PO BID 10/17/18 Glipizide [Glipizide ER] 10 mg PO DAILY 10/17/18 Insulin Glargine,Hum.rec.anlog 15 unit SQ DAILY 10/17/18 [Lantus] Levothyroxine [Synthroid -] 112 mcg PO DAILY 10/17/18 Lisinopril/Hydrochlorothiazide 1 each PO DAILY 10/17/18 [Lisinopril-Hctz 10-12.5 mg Tab] [place] Carbonate [Eskalith -] 450 mg PO BID 10/17/18 Metformin HCl [Glucophage] 1,000 mg PO BID 10/17/18 Multivitamins [Tab-A-Vit -] 1 tab PO DAILY 10/17/18 Sertraline HCl [Zoloft] 200 mg PO DAILY 10/17/18 Sitagliptin Phosphate [Januvia] 100 mg PO DAILY 10/17/18 Zolpidem Tartrate 10 mg PO DAILY 10/17/18 OBJECTIVE: VS, labs, imaging reviewed NAD, AAO, resting in bed NC AT EOMI PERRLA RRR s1/2 no mgr Lungs CTAB, w/ sym exp NT ND +BS CN2-12 wnl, no fnd Normal mood, appropriate behavior EKG with QTc 467; no ST-T aberrations. FSG reviewed; noted ASSESSMENT AND PLAN: Patient presents to the ER with a CC of accidental Lantus OD (=300); she is hyperglycemic 200-300 1) Accidental Insulin OD -States no SI but will discuss again in order to ensure given PMH -Q1h fsg until 1AM then q2h after. No hypoglycemia has been noted here. Follow K and Mg per poison control instruction -PRN D50/dextrose drip; has not needed, -Diabetic diet. 2) Poorly controlled DM w/ hyperglycemia -Checking A1c; hold PO antihyperglycemics. Given #1 will hold off on SSI for hyperglycemia for now -Consider endocrine referral; her psych meds skew her metabolic state as well and PMH provides significant barrier. Would also refer to DM educator and crocodile farmer. Will check A1c, lipids, TSH. She is on 20 Atorva and may benefit from a higher-intensity statin so will adjust based on ASCVD score. 3) Hyponatremia -Maybe pseudohypo; followup repeat BMP. If not improved check osms, urine Na, etc. 4) Psych hx -Per #1; continue home meds -Repeat EKG in AM as QTc slightly >460 -Check lithium levels 5) Hx Hypothyroid -Check TSH; continue home LT4 Full Code
[2018-10-17] MEDS ORDERED: ZOLPIDEM TARTRATE 5 MG TABLET PO PRN (20:34)
[2018-10-17 21:03] LABS: PH,URINE 7.5 (5.0-8.0); URINE APPEARANCE CLEAR; URINE BILIRUBIN NEGATIVE (NEGATIVE); URINE COLOR YELLOW; URINE GLUCOSE (UA) 3+ (NEGATIVE); URINE KETONE NEGATIVE (NEGATIVE); URINE LEUK ESTERASE 1+ (NEGATIVE); URINE NITRITE NEGATIVE (NEGATIVE); URINE PROTEIN NEGATIVE (NEGATIVE); URINE UROBILINOGEN 0.2 mg/dL (0.2-1.0)
[2018-10-17 21:22] LABS: BLOOD UREA NITROGEN 6.9 mg/dL (7-18); CALCIUM 9.7 mg/dL (8.5-10.1); CREATININE 0.7 mg/dL (0.55-1.3); MAGNESIUM 1.9 mg/dL (1.8-2.4); PHOSPHOROUS 3.4 mg/dL (2.5-4.9); POTASSIUM 4.6 mmol/L (3.5-5.1)
[2018-10-17] MEDS ORDERED: ATORVASTATIN CA 20 MG TABLET (FP) ONE (22:07)
[2018-10-17] MEDS: ATORVASTATIN CA 20 MG TABLET (FP) PO SCH (22:10)
[2018-10-18 07:44] LABS: BLOOD UREA NITROGEN 6.5 mg/dL (7-18); CREATININE 0.5 mg/dL (0.55-1.3); MAGNESIUM 2.1 mg/dL (1.8-2.4); PHOSPHOROUS 4.3 mg/dL (2.5-4.9); POTASSIUM 3.6 mmol/L (3.5-5.1)
[2018-10-18] MEDS: ASPIRIN 81 MG CHEWABLE TABLETS PO SCH (09:59)
[2018-10-18] MEDS: SERTRALINE HCL 50 MG TABLET (FP) PO SCH (09:59)
[2018-10-18] MEDS: LEVOTHYROXINE NA 112 MCG TABLET (FP) PO SCH (09:59)
[2018-10-18] MEDS: GABAPENTIN 300 MG CAPSULE (FP) PO SCH ×2 (09:59→21:05)
[2018-10-18] MEDS ORDERED: PATIENT'S OWN MEDICATION (NON-FORMULARY) (Sertraline Hcl [Zoloft] 200 MG) PO SCH (10:00)
[2018-10-18] MEDS ORDERED: PATIENT'S OWN MEDICATION (NON-FORMULARY) (Zolpidem Tartrate [Zolpidem Tartrate] 10 MG) PO SCH (10:00)
--- NOTE | 2018-10-18 11:53 | EKG ---
Test Reason : Blood Pressure : / mmHG Vent. Rate : 061 BPM Atrial Rate : 061 BPM P-R Int : 154 ms QRS Dur : 086 ms QT Int : 464 ms P-R-T Axes : 021 014 037 degrees QTc Int : 467 ms NORMAL SINUS RHYTHM NORMAL ECG WHEN COMPARED WITH ECG OF 27-JUN-2016 19:47, NO SIGNIFICANT CHANGE WAS FOUND Confirmed by LUCÍA YEN MD ([id number]) on 10/18/2018 11:53:28 AM Referred By: Confirmed By:LUCÍA YEN MD
--- NOTE | 2018-10-18 12:25 | PN ---
Physical Exam: SUBJECTIVE: Patient seen and examined at bedside. Somewhat confused. No acute complaints. OBJECTIVE: Vital Signs Period Temp Pulse Resp BP Sys/Narvaez Pulse Ox Last 24 Hr 97.6 F-98.4 F 66-81 18-20 105-147/59-85 97-100 GENERAL: A&Ox3 but generalized confusion, NAD HEENT: NC/AT, PERRLA, EOMI, MMM NECK: Trachea midline, full range of motion, supple. LUNGS: CTA b/l HEART: RRR no m/r/g ABDOMEN: +bs, soft, NT, ND EXTREMITIES: 2+ pulses, warm, well-perfused, no edema. 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 PSYCH: elevated mood SKIN: Warm, dry, normal turgor Laboratory Results - last 24 hr 10/17/18 10/17/18 10/17/18 16:57 17:20 17:20 WBC 6.3 RBC 5.77 H Hgb 14.1 Hct 43.2 MCV 74.8 L MCH 24.5 L MCHC 32.8 RDW 14.0 Plt Count 177 MPV 9.1 Absolute Neuts (auto) 3.1 Neutrophils % 49.9 Lymphocytes % 42.3 H D Monocytes % 5.4 Eosinophils % 1.7 Basophils % 0.7 Nucleated RBC % 0 PT with INR 12.90 INR 1.09 Sodium Potassium Chloride Carbon Dioxide Anion Gap BUN Creatinine Est GFR (CKD-EPI)AfAm Est GFR (CKD-EPI)NonAf POC Glucometer 300 Random Glucose Calcium Phosphorus Magnesium Total Bilirubin AST ALT Alkaline Phosphatase Total Protein Albumin Urine Color Urine Appearance Urine pH Ur Specific [place] Urine Protein Urine Glucose (UA) Urine Ketones Urine Blood Urine Nitrite Urine Bilirubin Urine Urobilinogen Ur Leukocyte Esterase Acetone, Qual 10/17/18 10/17/18 10/17/18 17:20 17:57 18:50 WBC RBC Hgb Hct MCV MCH MCHC RDW Plt Count MPV Absolute Neuts (auto) Neutrophils % Lymphocytes % Monocytes % Eosinophils % Basophils % Nucleated RBC % PT with INR INR Sodium 131 L Potassium 4.1 Chloride 99 Carbon Dioxide 27 Anion Gap 5 L BUN 7.3 Creatinine 0.5 L Est GFR (CKD-EPI)AfAm 128.07 Est GFR (CKD-EPI)NonAf 110.50 POC Glucometer 236 284 Random Glucose 261 H Calcium 9.0 Phosphorus Magnesium Total Bilirubin 0.5 AST 29 ALT 35 Alkaline Phosphatase 160 H Total Protein 7.0 Albumin 3.4 Urine Color Urine Appearance Urine pH Ur Specific [place] Urine Protein Urine Glucose (UA) Urine Ketones Urine Blood Urine Nitrite Urine Bilirubin Urine Urobilinogen Ur Leukocyte Esterase Acetone, Qual Negative L 10/17/18 10/17/18 10/17/18 19:35 20:26 20:44 WBC RBC Hgb Hct MCV MCH MCHC RDW Plt Count MPV Absolute Neuts (auto) Neutrophils % Lymphocytes % Monocytes % Eosinophils % Basophils % Nucleated RBC % PT with INR INR Sodium 138 Potassium 4.6 Chloride 101 Carbon Dioxide 31 Anion Gap 6 L BUN 6.9 L Creatinine 0.7 Est GFR (CKD-EPI)AfAm 114.65 Est GFR (CKD-EPI)NonAf 98.92 POC Glucometer 298 Random Glucose 267 H Calcium 9.7 Phosphorus 3.4 Magnesium 1.9 Total Bilirubin AST ALT Alkaline Phosphatase Total Protein Albumin Urine Color Yellow Urine Appearance Clear Urine pH 7.5 D Ur Specific [place] 1.009 L Urine Protein Negative Urine Glucose (UA) 3+ H Urine Ketones Negative Urine Blood Negative Urine Nitrite Negative Urine Bilirubin Negative Urine Urobilinogen 0.2 Ur Leukocyte Esterase 1+ H Acetone, Qual 10/17/18 10/17/18 10/18/18 22:09 23:33 02:23 WBC RBC Hgb Hct MCV MCH MCHC RDW Plt Count MPV Absolute Neuts (auto) Neutrophils % Lymphocytes % Monocytes % Eosinophils % Basophils % Nucleated RBC % PT with INR INR Sodium Potassium Chloride Carbon Dioxide Anion Gap BUN Creatinine Est GFR (CKD-EPI)AfAm Est GFR (CKD-EPI)NonAf POC Glucometer 264 182 123 Random Glucose Calcium Phosphorus Magnesium Total Bilirubin AST ALT Alkaline Phosphatase Total Protein Albumin Urine Color Urine Appearance Urine pH Ur Specific [place] Urine Protein Urine Glucose (UA) Urine Ketones Urine Blood Urine Nitrite Urine Bilirubin Urine Urobilinogen Ur Leukocyte Esterase Acetone, Qual 10/18/18 10/18/18 10/18/18 04:27 06:25 08:54 WBC RBC Hgb Hct MCV MCH MCHC RDW Plt Count MPV Absolute Neuts (auto) Neutrophils % Lymphocytes % Monocytes % Eosinophils % Basophils % Nucleated RBC % PT with INR INR Sodium 139 Potassium 3.6 Chloride 102 Carbon Dioxide 28 Anion Gap 9 BUN 6.5 L Creatinine 0.5 L Est GFR (CKD-EPI)AfAm 128.07 Est GFR (CKD-EPI)NonAf 110.50 POC Glucometer 154 183 Random Glucose 223 H Calcium 9.0 Phosphorus 4.3 Magnesium 2.1 Total Bilirubin AST ALT Alkaline Phosphatase Total Protein Albumin Urine Color Urine Appearance Urine pH Ur Specific [place] Urine Protein Urine Glucose (UA) Urine Ketones Urine Blood Urine Nitrite Urine Bilirubin Urine Urobilinogen Ur Leukocyte Esterase Acetone, Qual 10/18/18 11:42 WBC RBC Hgb Hct MCV MCH MCHC RDW Plt Count MPV Absolute Neuts (auto) Neutrophils % Lymphocytes % Monocytes % Eosinophils % Basophils % Nucleated RBC % PT with INR INR Sodium Potassium Chloride Carbon Dioxide Anion Gap BUN Creatinine Est GFR (CKD-EPI)AfAm Est GFR (CKD-EPI)NonAf POC Glucometer 154 Random Glucose Calcium Phosphorus Magnesium Total Bilirubin AST ALT Alkaline Phosphatase Total Protein Albumin Urine Color Urine Appearance Urine pH Ur Specific [place] Urine Protein Urine Glucose (UA) Urine Ketones Urine Blood Urine Nitrite Urine Bilirubin Urine Urobilinogen Ur Leukocyte Esterase Acetone, Qual Active Medications Generic Name Dose Route Start Last Admin Trade Name Freq PRN Reason Stop Dose Admin Aspirin 81 mg 10/18/18 10:00 10/18/18 09:59 Asa - PO 81 mg DAILY JANAK Administration Atorvastatin Calcium 20 mg 10/17/18 22:00 10/17/18 22:10 Lipitor - PO 20 mg HS JANAK Administration Gabapentin 300 mg 10/18/18 10:00 10/18/18 09:59 Neurontin - PO 300 mg BID JANAK Administration Levothyroxine Sodium 112 mcg 10/18/18 10:00 10/18/18 09:59 Synthroid - PO 112 mcg DAILY JANAK Administration Sertraline HCl 200 mg 10/18/18 10:00 10/18/18 09:59 Zoloft - PO 200 mg DAILY JANAK Administration Zolpidem Tartrate 10 mg 10/17/18 20:34 Ambien - PO HS PRN INSOMNIA ASSESSMENT/PLAN: Patient is a 53 y/o F w/ PMHx DM recently started on insulin, HTN, HLD, hypothyroidism, bipolar disorder with severe manifestations on disability, fatty liver, presents to ED after reported accidental overdose of insulin glargine. Had been prescribed 15U daily dose, instead reportedly injected her with an entire pen. Poison control was contacted and recommended 24 hours observation. Chemistries were carefully monitored. Patient remained hyperglycemic throughout hospitalization. Unlikely to have actually received supratherapeutic insulin dose. Diabetic education was consulted. Patient was discharged on previously prescribed oral hypoglycemics with f/u referral to PMD.
[2018-10-18 13:14] LABS: BLOOD UREA NITROGEN 7.3 mg/dL (7-18); CALCIUM 9.4 mg/dL (8.5-10.1); CREATININE 0.4 mg/dL (0.55-1.3); MAGNESIUM 1.9 mg/dL (1.8-2.4); PHOSPHOROUS 4.3 mg/dL (2.5-4.9); POTASSIUM 4.4 mmol/L (3.5-5.1)
[2018-10-18] MEDS ORDERED: ONDANSETRON 4 MG/2 ML VIAL IVPUSH ONE (13:18)
[2018-10-18] MEDS ORDERED: PANTOPRAZOLE 20 MG TABLET (FP) PO ONE (13:30)
--- NOTE | 2018-10-18 14:18 | DS ---
Physical Exam: SUBJECTIVE: Patient seen and examined at bedside. Somewhat confused. No acute complaints. OBJECTIVE: Vital Signs Period Temp Pulse Resp BP Sys/Narvaez Pulse Ox Last 24 Hr 97.6 F-98.4 F 66-81 18-20 105-147/59-85 97-100 PHYSICAL EXAM GENERAL: A&Ox3 but generalized confusion, NAD HEENT: NC/AT, PERRLA, EOMI, MMM NECK: Trachea midline, full range of motion, supple. LUNGS: CTA b/l HEART: RRR no m/r/g ABDOMEN: +bs, soft, NT, ND EXTREMITIES: 2+ pulses, warm, well-perfused, no edema. 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 PSYCH: elevated mood SKIN: Warm, dry, normal turgor LABS Laboratory Results - last 24 hr 10/17/18 10/17/18 10/17/18 16:57 17:20 17:20 WBC 6.3 RBC 5.77 H Hgb 14.1 Hct 43.2 MCV 74.8 L MCH 24.5 L MCHC 32.8 RDW 14.0 Plt Count 177 MPV 9.1 Absolute Neuts (auto) 3.1 Neutrophils % 49.9 Lymphocytes % 42.3 H D Monocytes % 5.4 Eosinophils % 1.7 Basophils % 0.7 Nucleated RBC % 0 PT with INR 12.90 INR 1.09 Sodium Potassium Chloride Carbon Dioxide Anion Gap BUN Creatinine Est GFR (CKD-EPI)AfAm Est GFR (CKD-EPI)NonAf POC Glucometer 300 Random Glucose Calcium Phosphorus Magnesium Total Bilirubin AST ALT Alkaline Phosphatase Total Protein Albumin Urine Color Urine Appearance Urine pH Ur Specific [place] Urine Protein Urine Glucose (UA) Urine Ketones Urine Blood Urine Nitrite Urine Bilirubin Urine Urobilinogen Ur Leukocyte Esterase Acetone, Qual 10/17/18 10/17/18 10/17/18 17:20 17:57 18:50 WBC RBC Hgb Hct MCV MCH MCHC RDW Plt Count MPV Absolute Neuts (auto) Neutrophils % Lymphocytes % Monocytes % Eosinophils % Basophils % Nucleated RBC % PT with INR INR Sodium 131 L Potassium 4.1 Chloride 99 Carbon Dioxide 27 Anion Gap 5 L BUN 7.3 Creatinine 0.5 L Est GFR (CKD-EPI)AfAm 128.07 Est GFR (CKD-EPI)NonAf 110.50 POC Glucometer 236 284 Random Glucose 261 H Calcium 9.0 Phosphorus Magnesium Total Bilirubin 0.5 AST 29 ALT 35 Alkaline Phosphatase 160 H Total Protein 7.0 Albumin 3.4 Urine Color Urine Appearance Urine pH Ur Specific [place] Urine Protein Urine Glucose (UA) Urine Ketones Urine Blood Urine Nitrite Urine Bilirubin Urine Urobilinogen Ur Leukocyte Esterase Acetone, Qual Negative L 10/17/18 10/17/18 10/17/18 19:35 20:26 20:44 WBC RBC Hgb Hct MCV MCH MCHC RDW Plt Count MPV Absolute Neuts (auto) Neutrophils % Lymphocytes % Monocytes % Eosinophils % Basophils % Nucleated RBC % PT with INR INR Sodium 138 Potassium 4.6 Chloride 101 Carbon Dioxide 31 Anion Gap 6 L BUN 6.9 L Creatinine 0.7 Est GFR (CKD-EPI)AfAm 114.65 Est GFR (CKD-EPI)NonAf 98.92 POC Glucometer 298 Random Glucose 267 H Calcium 9.7 Phosphorus 3.4 Magnesium 1.9 Total Bilirubin AST ALT Alkaline Phosphatase Total Protein Albumin Urine Color Yellow Urine Appearance Clear Urine pH 7.5 D Ur Specific [place] 1.009 L Urine Protein Negative Urine Glucose (UA) 3+ H Urine Ketones Negative Urine Blood Negative Urine Nitrite Negative Urine Bilirubin Negative Urine Urobilinogen 0.2 Ur Leukocyte Esterase 1+ H Acetone, Qual 10/17/18 10/17/18 10/18/18 22:09 23:33 02:23 WBC RBC Hgb Hct MCV MCH MCHC RDW Plt Count MPV Absolute Neuts (auto) Neutrophils % Lymphocytes % Monocytes % Eosinophils % Basophils % Nucleated RBC % PT with INR INR Sodium Potassium Chloride Carbon Dioxide Anion Gap BUN Creatinine Est GFR (CKD-EPI)AfAm Est GFR (CKD-EPI)NonAf POC Glucometer 264 182 123 Random Glucose Calcium Phosphorus Magnesium Total Bilirubin AST ALT Alkaline Phosphatase Total Protein Albumin Urine Color Urine Appearance Urine pH Ur Specific [place] Urine Protein Urine Glucose (UA) Urine Ketones Urine Blood Urine Nitrite Urine Bilirubin Urine Urobilinogen Ur Leukocyte Esterase Acetone, Qual 10/18/18 10/18/18 10/18/18 04:27 06:25 08:54 WBC RBC Hgb Hct MCV MCH MCHC RDW Plt Count MPV Absolute Neuts (auto) Neutrophils % Lymphocytes % Monocytes % Eosinophils % Basophils % Nucleated RBC % PT with INR INR Sodium 139 Potassium 3.6 Chloride 102 Carbon Dioxide 28 Anion Gap 9 BUN 6.5 L Creatinine 0.5 L Est GFR (CKD-EPI)AfAm 128.07 Est GFR (CKD-EPI)NonAf 110.50 POC Glucometer 154 183 Random Glucose 223 H Calcium 9.0 Phosphorus 4.3 Magnesium 2.1 Total Bilirubin AST ALT Alkaline Phosphatase Total Protein Albumin Urine Color Urine Appearance Urine pH Ur Specific [place] Urine Protein Urine Glucose (UA) Urine Ketones Urine Blood Urine Nitrite Urine Bilirubin Urine Urobilinogen Ur Leukocyte Esterase Acetone, Qual 10/18/18 10/18/18 11:42 12:25 WBC RBC Hgb Hct MCV MCH MCHC RDW Plt Count MPV Absolute Neuts (auto) Neutrophils % Lymphocytes % Monocytes % Eosinophils % Basophils % Nucleated RBC % PT with INR INR Sodium 138 Potassium 4.4 Chloride 102 Carbon Dioxide 28 Anion Gap 7 L BUN 7.3 Creatinine 0.4 L Est GFR (CKD-EPI)AfAm 137.82 Est GFR (CKD-EPI)NonAf 118.91 POC Glucometer 154 Random Glucose 139 H Calcium 9.4 Phosphorus 4.3 Magnesium 1.9 Total Bilirubin AST ALT Alkaline Phosphatase Total Protein Albumin Urine Color Urine Appearance Urine pH Ur Specific [place] Urine Protein Urine Glucose (UA) Urine Ketones Urine Blood Urine Nitrite Urine Bilirubin Urine Urobilinogen Ur Leukocyte Esterase Acetone, Qual HOSPITAL COURSE: Date of Admission:10/17/18 Patient is a 53 y/o F w/ PMHx DM recently started on insulin, HTN, HLD, hypothyroidism, bipolar disorder with severe manifestations on disability, fatty liver, presents to ED after reported accidental overdose of insulin glargine. Had been prescribed 15U daily dose, instead reportedly injected her with an entire pen. Poison control was contacted and recommended 24 hours observation. Chemistries were carefully monitored. Patient remained hyperglycemic throughout hospitalization. Unlikely to have actually received supratherapeutic insulin dose. Diabetic education was consulted. Patient was discharged on previously prescribed oral hypoglycemics with f/u referral to PMD. Date of Discharge: 10/18/18 Minutes to complete discharge: 40 Discharge Summary Reason For Visit: INSULIN OVERDOSE Current Active Problems Insulin overdose (Acute) Condition: Stable - Instructions Diet, Activity, Other Instructions: You were hospitalized due to an accidental overdose of insulin. Your labs were carefully monitored and you are safe for discharge from the hospital. Please follow up with your primary medical doctor within 1 week of discharge. Please resume your home medications including Januvia, Metformin, and Glipizide for diabetes, but do not take further insulin until you have seen your primary medical doctor. If you experience any new or worsening pain, shortness of breath , loss of consciousness, weakness or changes in sensation, fever, chills, nausea , vomiting, or any other new or concerning signs or symptoms, please return to the Emergency Department. Referrals: Zayra Hsu MD [Primary Care Provider] - Disposition: HOME - Home Medications Comprehensive Discharge Medication List: Ambulatory Orders Aspirin 81 mg PO DAILY 10/17/18 Atorvastatin Ca [Lipitor] 20 mg PO HS 10/17/18 Fluconazole [Diflucan] 150 mg PO ONCE 10/17/18 Gabapentin 300 mg PO BID 10/17/18 Glipizide [Glipizide ER] 10 mg PO BID 10/17/18 Insulin Glargine,Hum.rec.anlog [Lantus] 15 unit SQ DAILY 10/17/18 Levothyroxine [Synthroid -] 112 mcg PO DAILY 10/17/18 Lisinopril/Hydrochlorothiazide [Lisinopril-Hctz 10-12.5 mg Tab] 1 each PO DAILY 10/17/18 [place]a Carbonate [Eskalith -] 450 mg PO BID 10/17/18 Metformin HCl [Glucophage] 1,000 mg PO BID 10/17/18 Multivitamins [Tab-A-Vit -] 1 tab PO DAILY 10/17/18 Sertraline HCl [Zoloft] 200 mg PO DAILY 10/17/18 Sitagliptin Phosphate [Januvia] 100 mg PO DAILY 10/17/18 Zolpidem Tartrate 10 mg PO DAILY 10/17/18 Doxepin HCl [Sinequan -] 10 mg PO DAILY 10/18/18 This patient is new to me today: Yes Date on this admission: 10/18/18 Emergency Visit: Yes ED Registration Date: 10/17/18 Care time: The patient presented to the Emergency Department on the above date and was hospitalized for further evaluation of their emergent condition. Critical Care patient: No - Discharge Referral Referred to [facility] No
--- NOTE | 2018-10-18 14:43 | PN ---
Teaching Attending Note Name of Resident: Kosta Phelan ATTENDING PHYSICIAN STATEMENT I saw and evaluated the patient. I reviewed the resident's note and discussed the case with the resident. I agree with the resident's findings and plan as documented. SUBJECTIVE: Seen and examined at bedside, no acute events overnight. Patient feels well, now ready to go home. No hypoglycemic episodes. OBJECTIVE: Vital Signs - 24 hr 10/17/18 10/17/18 10/18/18 16:47 23:48 02:30 Temperature 97.9 F 98.4 F Pulse Rate 67 81 Pulse Rate [ 66 Apical] Respiratory 18 20 18 Rate Blood Pressure 147/85 122/72 Blood Pressure 105/84 [Right Arm] O2 Sat by Pulse 100 97 98 Oximetry (%) 10/18/18 10/18/18 10/18/18 04:19 06:00 12:00 Temperature 97.6 F Pulse Rate 67 Pulse Rate [ Apical] Respiratory 18 Rate Blood Pressure 116/59 L Blood Pressure [Right Arm] O2 Sat by Pulse 98 96 Oximetry (%) 10/18/18 14:20 Temperature 97.8 F Pulse Rate 63 Pulse Rate [ Apical] Respiratory 18 Rate Blood Pressure 140/81 Blood Pressure [Right Arm] O2 Sat by Pulse Oximetry (%) General: NAD CVS: s1s2, RRR Lungs: CTA b/l, unlabored Abdomen: soft, NT/ND, NABS, obese Ext: no c/c/e Laboratory Results - last 24 hr 10/17/18 10/17/18 10/17/18 16:57 17:20 17:20 WBC 6.3 RBC 5.77 H Hgb 14.1 Hct 43.2 MCV 74.8 L MCH 24.5 L MCHC 32.8 RDW 14.0 Plt Count 177 MPV 9.1 Absolute Neuts (auto) 3.1 Neutrophils % 49.9 Lymphocytes % 42.3 H D Monocytes % 5.4 Eosinophils % 1.7 Basophils % 0.7 Nucleated RBC % 0 PT with INR 12.90 INR 1.09 Sodium Potassium Chloride Carbon Dioxide Anion Gap BUN Creatinine Est GFR (CKD-EPI)AfAm Est GFR (CKD-EPI)NonAf POC Glucometer 300 Random Glucose Calcium Phosphorus Magnesium Total Bilirubin AST ALT Alkaline Phosphatase Total Protein Albumin Urine Color Urine Appearance Urine pH Ur Specific [place] Urine Protein Urine Glucose (UA) Urine Ketones Urine Blood Urine Nitrite Urine Bilirubin Urine Urobilinogen Ur Leukocyte Esterase Acetone, Qual 10/17/18 10/17/18 10/17/18 17:20 17:57 18:50 WBC RBC Hgb Hct MCV MCH MCHC RDW Plt Count MPV Absolute Neuts (auto) Neutrophils % Lymphocytes % Monocytes % Eosinophils % Basophils % Nucleated RBC % PT with INR INR Sodium 131 L Potassium 4.1 Chloride 99 Carbon Dioxide 27 Anion Gap 5 L BUN 7.3 Creatinine 0.5 L Est GFR (CKD-EPI)AfAm 128.07 Est GFR (CKD-EPI)NonAf 110.50 POC Glucometer 236 284 Random Glucose 261 H Calcium 9.0 Phosphorus Magnesium Total Bilirubin 0.5 AST 29 ALT 35 Alkaline Phosphatase 160 H Total Protein 7.0 Albumin 3.4 Urine Color Urine Appearance Urine pH Ur Specific [place] Urine Protein Urine Glucose (UA) Urine Ketones Urine Blood Urine Nitrite Urine Bilirubin Urine Urobilinogen Ur Leukocyte Esterase Acetone, Qual Negative L 10/17/18 10/17/18 10/17/18 19:35 20:26 20:44 WBC RBC Hgb Hct MCV MCH MCHC RDW Plt Count MPV Absolute Neuts (auto) Neutrophils % Lymphocytes % Monocytes % Eosinophils % Basophils % Nucleated RBC % PT with INR INR Sodium 138 Potassium 4.6 Chloride 101 Carbon Dioxide 31 Anion Gap 6 L BUN 6.9 L Creatinine 0.7 Est GFR (CKD-EPI)AfAm 114.65 Est GFR (CKD-EPI)NonAf 98.92 POC Glucometer 298 Random Glucose 267 H Calcium 9.7 Phosphorus 3.4 Magnesium 1.9 Total Bilirubin AST ALT Alkaline Phosphatase Total Protein Albumin Urine Color Yellow Urine Appearance Clear Urine pH 7.5 D Ur Specific [place] 1.009 L Urine Protein Negative Urine Glucose (UA) 3+ H Urine Ketones Negative Urine Blood Negative Urine Nitrite Negative Urine Bilirubin Negative Urine Urobilinogen 0.2 Ur Leukocyte Esterase 1+ H Acetone, Qual 10/17/18 10/17/18 10/18/18 22:09 23:33 02:23 WBC RBC Hgb Hct MCV MCH MCHC RDW Plt Count MPV Absolute Neuts (auto) Neutrophils % Lymphocytes % Monocytes % Eosinophils % Basophils % Nucleated RBC % PT with INR INR Sodium Potassium Chloride Carbon Dioxide Anion Gap BUN Creatinine Est GFR (CKD-EPI)AfAm Est GFR (CKD-EPI)NonAf POC Glucometer 264 182 123 Random Glucose Calcium Phosphorus Magnesium Total Bilirubin AST ALT Alkaline Phosphatase Total Protein Albumin Urine Color Urine Appearance Urine pH Ur Specific [place] Urine Protein Urine Glucose (UA) Urine Ketones Urine Blood Urine Nitrite Urine Bilirubin Urine Urobilinogen Ur Leukocyte Esterase Acetone, Qual 10/18/18 10/18/18 10/18/18 04:27 06:25 08:54 WBC RBC Hgb Hct MCV MCH MCHC RDW Plt Count MPV Absolute Neuts (auto) Neutrophils % Lymphocytes % Monocytes % Eosinophils % Basophils % Nucleated RBC % PT with INR INR Sodium 139 Potassium 3.6 Chloride 102 Carbon Dioxide 28 Anion Gap 9 BUN 6.5 L Creatinine 0.5 L Est GFR (CKD-EPI)AfAm 128.07 Est GFR (CKD-EPI)NonAf 110.50 POC Glucometer 154 183 Random Glucose 223 H Calcium 9.0 Phosphorus 4.3 Magnesium 2.1 Total Bilirubin AST ALT Alkaline Phosphatase Total Protein Albumin Urine Color Urine Appearance Urine pH Ur Specific [place] Urine Protein Urine Glucose (UA) Urine Ketones Urine Blood Urine Nitrite Urine Bilirubin Urine Urobilinogen Ur Leukocyte Esterase Acetone, Qual 10/18/18 10/18/18 11:42 12:25 WBC RBC Hgb Hct MCV MCH MCHC RDW Plt Count MPV Absolute Neuts (auto) Neutrophils % Lymphocytes % Monocytes % Eosinophils % Basophils % Nucleated RBC % PT with INR INR Sodium 138 Potassium 4.4 Chloride 102 Carbon Dioxide 28 Anion Gap 7 L BUN 7.3 Creatinine 0.4 L Est GFR (CKD-EPI)AfAm 137.82 Est GFR (CKD-EPI)NonAf 118.91 POC Glucometer 154 Random Glucose 139 H Calcium 9.4 Phosphorus 4.3 Magnesium 1.9 Total Bilirubin AST ALT Alkaline Phosphatase Total Protein Albumin Urine Color Urine Appearance Urine pH Ur Specific [place] Urine Protein Urine Glucose (UA) Urine Ketones Urine Blood Urine Nitrite Urine Bilirubin Urine Urobilinogen Ur Leukocyte Esterase Acetone, Qual Current Medications Generic Name Dose Route Start Last Admin Trade Name Freq PRN Reason Stop Dose Admin Aspirin 81 mg 10/18/18 10:00 10/18/18 09:59 Asa - PO 81 mg DAILY JANAK Administration Atorvastatin Calcium 20 mg 10/17/18 22:00 10/17/18 22:10 Lipitor - PO 20 mg HS JANAK Administration Gabapentin 300 mg 10/18/18 10:00 10/18/18 09:59 Neurontin - PO 300 mg BID JANAK Administration Levothyroxine Sodium 112 mcg 10/18/18 10:00 10/18/18 09:59 Synthroid - PO 112 mcg DAILY JANAK Administration Sertraline HCl 200 mg 10/18/18 10:00 10/18/18 09:59 Zoloft - PO 200 mg DAILY JANAK Administration Zolpidem Tartrate 10 mg 10/17/18 20:34 Ambien - PO HS PRN INSOMNIA ASSESSMENT AND PLAN: Reported accidental insulin overdose -unlikely given normal to elevated blood sugars for almost 24 hours -per poison control recs, stable for DC -would hold of on insulin treatment and DC on oral regimen until safe insulin administration is established -patients administered insulin and he is not present today DM2 -DC on oral regimen and fu with PCP for further recs given psych med potential interactions Psych hx -cw current meds Hypothyroid -cw synthroid
[2018-10-18] MEDS ORDERED: LISINOPRIL 10 MG TABLET (FP) PO ONE (17:54)
[2018-10-18] MEDS ORDERED: HYDROCHLOROTHIAZIDE 12.5 MG CAPSULE (FP) PO ONE (17:54)
[2018-10-18 18:21] LABS: BLOOD UREA NITROGEN 9.9 mg/dL (7-18); CALCIUM 9.3 mg/dL (8.5-10.1); CREATININE 0.5 mg/dL (0.55-1.3); MAGNESIUM 1.9 mg/dL (1.8-2.4); PHOSPHOROUS 3.9 mg/dL (2.5-4.9); POTASSIUM 4.8 mmol/L (3.5-5.1)
--- NOTE | 2018-10-18 20:59 | HOSP ---
Subjective - Review of Symptoms Events since last encounter: Called for high BP, nursing reporting it has stayed high. Patient did not get home BP meds today. Given and one hour later still 160/100. Patient did not feel comfortable going home. Patient will leave in the morning and receive am bp meds. Physical Examination Vital Signs: Vital Signs Temperature 97.2 F L 10/18/18 18:10 Pulse Rate 78 10/18/18 18:10 Respiratory Rate 18 10/18/18 18:10 Blood Pressure 160/90 10/18/18 18:10 O2 Sat by Pulse Oximetry (%) 96 10/18/18 12:00 Labs: CBC, BMP 10/17/18 17:20 10/18/18 17:10 Visit type - Emergency Visit Emergency Visit: No - New Patient This patient is new to me today: No - Critical Care Critical Care patient: No
[2018-10-18] MEDS: ATORVASTATIN CA 20 MG TABLET (FP) PO SCH (21:05)
[2018-10-19 06:32] VITALS: PULSE 62
[2018-10-19] MEDS ORDERED: HYDROCHLOROTHIAZIDE 12.5 MG CAPSULE (FP) PO SCH (10:00)
[2018-10-19] MEDS ORDERED: PATIENT'S OWN MEDICATION (NON-FORMULARY) (Lisinopril/Hydrochlorothiazide [Lisinopril-Hctz PO SCH (10:00)
[2018-10-19] MEDS ORDERED: LISINOPRIL 10 MG TABLET (FP) PO SCH (10:00)
[2018-10-19] MEDS: ASPIRIN 81 MG CHEWABLE TABLETS PO SCH (11:09)
[2018-10-19] MEDS: SERTRALINE HCL 50 MG TABLET (FP) PO SCH (11:09)
[2018-10-19] MEDS: GABAPENTIN 300 MG CAPSULE (FP) PO SCH (11:10)
[2018-10-19] MEDS: LEVOTHYROXINE NA 112 MCG TABLET (FP) PO SCH (11:10)
[2018-10-19 11:14] VITALS: BP 125/70; TEMP 98.2
== END 2018-10-19 11:44 | disposition home or self-care (01) ==
LOC: JER 16:39 → INTOOBSV 19:03 → JERBED 19:03 → J5S 10-18 02:33
PROVIDERS: ADMIT Internal Medicine; ATTEND Internal Medicine
PROC: 3E033GC Introduction of Other Therapeutic Substance into Peripheral Vein, Percutaneous Approach (ICD-10-PCS; principal; 2018-10-17)
DX: T38.3X1A Poisoning by insulin and oral hypoglycemic [antidiabetic] drugs, accidental (unintentional), initial encounter (principal); Y92.009 Unspecified place in unspecified non-institutional (private) residence as the place of occurrence of the external cause; I10 Essential (primary) hypertension; E78.5 Hyperlipidemia, unspecified; E11.65 Type 2 diabetes mellitus with hyperglycemia; E03.9 Hypothyroidism, unspecified; E87.1 Hypo-osmolality and hyponatremia; K76.0 Fatty (change of) liver, not elsewhere classified; F31.9 Bipolar disorder, unspecified; E66.9 Obesity, unspecified; Z68.31 Body mass index [BMI] 31.0-31.9, adult; Z79.82 Long term (current) use of aspirin; Z79.84 Long term (current) use of oral hypoglycemic drugs; Z79.4 Long term (current) use of insulin
CPT/HCPCS: 36415; 80048; 80053; 81003; 82009; 82962; 83735; 84100; 85025; 85610; 93005; 93010; 96374; 99285-25; G0378

== ENCOUNTER 2019-10-18 11:20 | Emergency (ER) | payer OTHER ==
[2019-10-18 11:26] VITALS: TEMP 98.2; BMI 36.9
[2019-10-18 12:00] LABS: BASO % 0.7 % (0-2.0); EOS % 2.7 % (0-4.5); HEMOGLOBIN 13.7 GM/dL (10.7-15.3); LYMPH % 31.9 % (8-40); MCH 25.5 pg (25.7-33.7); MCHC 32.7 g/dl (32.0-36.0); MEAN CELL VOLUME 78.1 fl (80-96); MEAN PLT VOLUME 9.1 fl (7.5-11.1); MONO % 5.5 % (3.8-10.2); NEUT % 59.2 % (42.8-82.8); PLATELET COUNT 189 K/MM3 (134-434); RBC 5.38 M/mm3 (3.60-5.2); RDW 14.1 % (11.6-15.6); WHITE BLOOD COUNT 9.2 K/mm3 (4.0-10.0)
[2019-10-18 12:36] LABS: ALBUMIN 3.6 g/dl (3.4-5.0); BILIRUBIN,DIRECT 0.2 mg/dL (0.0-0.2); BILIRUBIN,TOTAL 0.4 mg/dL (0.2-1); BLOOD UREA NITROGEN 5.6 mg/dL (7-18); CALCIUM 9.2 mg/dL (8.5-10.1); CREATININE 0.7 mg/dL (0.55-1.3); POTASSIUM 3.6 mmol/L (3.5-5.1); TOT PROT 7.4 g/dl (6.4-8.2)
[2019-10-18] MEDS ORDERED: LISINOPRIL 10 MG TABLET PO ONE (14:11)
[2019-10-18] MEDS ORDERED: HYDROCHLOROTHIAZIDE 12.5 MG CAPSULE (FP) PO ONE (14:11)
[2019-10-18] MEDS ORDERED: HYDROCHLOROTHIAZIDE 25 MG TABLET (FP) ONE (14:19)
[2019-10-18] MEDS ORDERED: LISINOPRIL 5 MG TABLET ONE (14:19)
[2019-10-18 15:34] VITALS: BP 182/97; PULSE 80
== END 2019-10-18 15:35 | disposition home or self-care (01) ==
LOC: JER 11:20
DX: R10.9 Unspecified abdominal pain (principal)
CPT/HCPCS: 36415; 80048; 80076; 84484; 84703; 85025; 93005; 93010; 99284-25

== ENCOUNTER 2021-08-10 16:43 | Emergency (ER) | payer OTHER ==
[2021-08-10 17:38] VITALS: BP 98/71; PULSE 83; TEMP 98; BMI 35.4
[2021-08-10] MEDS ORDERED: KETOROLAC TROMETHAMINE 30 MG/1 ML VIAL IM ONE (18:14)
[2021-08-10] MEDS ORDERED: KETOROLAC TROMETHAMINE 30 MG/1 ML VIAL ONE (18:20)
[2021-08-10 19:03] LABS: BASO % 0.4 % (0-2.0); EOS % 2.5 % (0-4.5); HEMATOCRIT 36.5 % (32.4-45.2); HEMOGLOBIN 11.9 GM/dL (10.7-15.3); LYMPH % 25.5 % (8-40); MCH 23.1 pg (25.7-33.7); MCHC 32.7 g/dl (32.0-36.0); MEAN CELL VOLUME 70.6 fl (80-96); MEAN PLT VOLUME 7.7 fl (7.5-11.1); MONO % 6.4 % (3.8-10.2); NEUT % 65.2 % (42.8-82.8); PLATELET COUNT 294 10^3/uL (134-434); RBC 5.17 M/mm3 (3.60-5.2); RDW 14.8 % (11.6-15.6); WHITE BLOOD COUNT 10.4 K/mm3 (4.0-10.0)
[2021-08-10 19:25] LABS: CALCIUM 9.6 mg/dL (8.5-10.1)
[2021-08-10 19:26] LABS: ALBUMIN 3.2 g/dl (3.4-5.0); BLOOD UREA NITROGEN 7.5 mg/dL (7-18)
[2021-08-10 19:30] LABS: BILIRUBIN,TOTAL 0.3 mg/dL (0.2-1)
[2021-08-10 19:31] LABS: TOT PROT 7.5 g/dl (6.4-8.2)
[2021-08-10 19:35] LABS: CREATININE 0.5 mg/dL (0.55-1.3)
[2021-08-10 19:58] LABS: ERYTHROCYTE SEDIMENTATION RATE 58 mm/hr (0-30)
== END 2021-08-10 20:50 | disposition home or self-care (01) ==
LOC: JERFT 16:43
PROC: 3E023GC Introduction of Other Therapeutic Substance into Muscle, Percutaneous Approach (ICD-10-PCS; principal; 2021-08-10)
DX: M25.541 Pain in joints of right hand (principal); M25.542 Pain in joints of left hand
CPT/HCPCS: 36415; 73130-TC-LT-FY; 73130-TC-RT-FY; 80053; 85025; 85651; 86038; 86140; 99284-25

== ENCOUNTER 2023-04-27 13:57 | Emergency (ER) | payer OTHER ==
[2023-04-27 15:02] VITALS: BP 147/64; PULSE 65; RESP 16; TEMP 98.5; BMI 34.0
[2023-04-27] MEDS ORDERED: MAGNESIUM SULF 50% (8.12 MEQ/2 ML-1 GM VIAL) IVPB ONE (15:08)
[2023-04-27] MEDS ORDERED: MAGNESIUM 1GM/D5W - 1 GM/100 ML IVPB IVPB ONE (16:06)
[2023-04-27 16:14] LABS: BASO % 0.6 % (0-2.0); EOS % 2.9 % (0-4.5); HEMATOCRIT 41.4 % (32.4-45.2); HEMOGLOBIN 13.4 GM/dL (10.7-15.3); LYMPH % 19.2 % (8-40); MCHC 32.3 g/dl (32.0-36.0); MEAN CELL VOLUME 77.2 fl (80-96); MEAN PLT VOLUME 8.8 fl (7.5-11.1); NEUT % 72.3 % (42.8-82.8); PLATELET COUNT 174 10^3/uL (134-434); RBC 5.36 M/mm3 (3.60-5.2); RDW 14.2 % (11.6-15.6); WHITE BLOOD COUNT 8.9 K/mm3 (4.0-10.0)
[2023-04-27 16:23] LABS: INR 1.09 (0.83-1.09); PROTHROMBIN TIME (PATIENT) 12.6 SEC (9.7-13.0)
[2023-04-27 16:26] LABS: ACTIVATED PTT 31.5 SECONDS (25.2-36.5)
[2023-04-27 16:32] LABS: ALBUMIN 3.4 g/dl (3.4-5.0); CALCIUM 9.4 mg/dL (8.5-10.1)
[2023-04-27 16:33] LABS: BLOOD UREA NITROGEN 7.3 mg/dL (7-18); MAGNESIUM 1.6 mg/dL (1.8-2.4)
[2023-04-27 16:36] LABS: CREATININE 0.8 mg/dL (0.55-1.3)
[2023-04-27 16:37] LABS: BILIRUBIN,TOTAL 0.4 mg/dL (0.2-1); TOT PROT 7.8 g/dl (6.4-8.2)
[2023-04-27 16:41] LABS: N-TERMINAL BNP 98.1 pg/ml (5-125)
[2023-04-27 16:53] LABS: URINE APPEARANCE CLEAR; URINE BILIRUBIN NEGATIVE (NEGATIVE); URINE COLOR YELLOW; URINE GLUCOSE (UA) 3+ (NEGATIVE); URINE KETONE NEGATIVE (NEGATIVE); URINE LEUK ESTERASE NEGATIVE (NEGATIVE); URINE NITRITE NEGATIVE (NEGATIVE); URINE PROTEIN NEGATIVE (NEGATIVE); URINE UROBILINOGEN 0.2 mg/dL (0.2-1.0)
== END 2023-04-27 19:25 | disposition home or self-care (01) ==
LOC: JER 13:57
PROC: 3E033GC Introduction of Other Therapeutic Substance into Peripheral Vein, Percutaneous Approach (ICD-10-PCS; principal; 2023-04-27)
DX: R00.2 Palpitations (principal); R09.89 Other specified symptoms and signs involving the circulatory and respiratory systems; R06.89 Other abnormalities of breathing; R10.31 Right lower quadrant pain; R10.32 Left lower quadrant pain; R05.9 Cough, unspecified; E11.65 Type 2 diabetes mellitus with hyperglycemia; J06.9 Acute upper respiratory infection, unspecified; Z20.822 Contact with and (suspected) exposure to COVID-19
CPT/HCPCS: 0241U-QW; 36415; 71045-TC-FY; 80053; 81003; 83735; 83880; 84443; 84484; 85025; 85610; 85730; 87077; 87086; 93005; 93010; 99285-25

== ENCOUNTER 2023-08-28 16:35 | Emergency (ER) | payer OTHER ==
[2023-08-28 16:46] VITALS: BP 127/74; PULSE 76; RESP 18; TEMP 98; BMI 34.0
== END 2023-08-28 18:37 | disposition home or self-care (01) ==
LOC: JER 16:35
DX: N64.4 Mastodynia (principal)
CPT/HCPCS: 99282-25

== ENCOUNTER 2023-12-17 16:38 | Inpatient (IN) | payer OTHER ==
[2023-12-17 19:18] LABS: HEMATOCRIT 38.3 % (32.4-45.2); HEMOGLOBIN 12.4 GM/dL (10.7-15.3); MCH 24.6 pg (25.7-33.7); MCHC 32.2 g/dl (32.0-36.0); MEAN CELL VOLUME 76.2 fl (80-96); MEAN PLT VOLUME 8.1 fl (7.5-11.1); PLATELET COUNT 183 10^3/uL (134-434); RBC 5.03 M/mm3 (3.60-5.2); RDW 14.4 % (11.6-15.6); WHITE BLOOD COUNT 10.4 K/mm3 (4.0-10.0)
[2023-12-17 19:30] LABS: POTASSIUM 4.6 mmol/L (3.5-5.1)
[2023-12-17 19:32] LABS: CALCIUM 9.6 mg/dL (8.5-10.1)
[2023-12-17 19:33] LABS: ALBUMIN 3.4 g/dl (3.4-5.0); BLOOD UREA NITROGEN 10.2 mg/dL (7-18)
[2023-12-17 19:36] LABS: CREATININE 0.7 mg/dL (0.55-1.3)
[2023-12-17 19:38] LABS: BILIRUBIN,TOTAL 0.5 mg/dL (0.2-1); TOT PROT 7.3 g/dl (6.4-8.2)
[2023-12-17 20:29] LABS: ERYTHROCYTE SEDIMENTATION RATE 39 mm/hr (0-30)
[2023-12-17] MEDS ORDERED: ceFAZolin SODIUM 1 GM VIAL ONE (21:45)
[2023-12-17] MEDS: CEFAZOLIN 1 GM in DEXTROSE 5%-WATER - 50 ML IVPB ONE (21:50)
[2023-12-18 02:09] VITALS: BMI 37.8
[2023-12-18] MEDS: PIPERACILLIN/TAZOB 3.375 GM 3.375 GM in DEXTROSE 5%-WATER - 50 ML IVPB SCH (04:14)
[2023-12-18 05:20] LABS: MAGNESIUM 1.7 mg/dL (1.8-2.4)
[2023-12-18] MEDS: INSULIN ASPART SLIDING SCALE (NOVOLOG) 1 VIAL SQ SCH (06:06)
[2023-12-18] MEDS: LEVOTHYROXINE NA 112 MCG TABLET (FP) PO SCH (06:07)
[2023-12-18] MEDS: MAGNESIUM SULF 50% (8.12 MEQ/2 ML-1 GM VIAL) IVPB ONE (06:59)
[2023-12-18] MEDS ORDERED: glipiZIDE-XL 10 MG TAB.ER.24 (FP) PO SCH (07:00)
[2023-12-18 09:02] LABS: BASO % 0.5 % (0-2.0); EOS % 2.5 % (0-4.5); HEMATOCRIT 35.3 % (32.4-45.2); HEMOGLOBIN 11.7 GM/dL (10.7-15.3); LYMPH % 22.9 % (8-40); MCH 24.9 pg (25.7-33.7); MCHC 33.2 g/dl (32.0-36.0); MEAN PLT VOLUME 8.6 fl (7.5-11.1); MONO % 5.7 % (3.8-10.2); NEUT % 68.4 % (42.8-82.8); PLATELET COUNT 181 10^3/uL (134-434); RBC 4.71 M/mm3 (3.60-5.2)
[2023-12-18] MEDS ORDERED: PATIENT'S OWN MEDICATION (NON-FORMULARY) (Lisinopril/Hydrochlorothiazide [Lisinopril-Hctz PO SCH (10:00)
[2023-12-18] MEDS ORDERED: PATIENT'S OWN MEDICATION (NON-FORMULARY) (Meloxicam [Meloxicam] 15 MG Tablet) PO SCH (10:00)
[2023-12-18] MEDS: DOXEPIN HCL 10 MG CAPSULE PO SCH (10:03)
[2023-12-18] MEDS: ASPIRIN 81 MG CHEWABLE TABLETS PO SCH (10:03)
[2023-12-18] MEDS: ENOXAPARIN NA (PORCINE) 40 MG/0.4 ML DISP.SYRIN SQ SCH (10:04)
[2023-12-18] MEDS: HYDROCHLOROTHIAZIDE 12.5 MG CAPSULE (FP) PO SCH (10:04)
[2023-12-18] MEDS: LISINOPRIL 10 MG TABLET PO SCH (10:04)
[2023-12-18] MEDS: GABAPENTIN 300 MG CAPSULE PO SCH (10:04)
[2023-12-18] MEDS: ATORVASTATIN CA 20 MG TABLET (FP) PO SCH (21:19)
[2023-12-19] MEDS: PIPERACILLIN/TAZOB 3.375 GM 3.375 GM in DEXTROSE 5%-WATER - 50 ML IVPB SCH ×2 (02:30→09:24)
[2023-12-19 08:16] LABS: POTASSIUM 4.2 mmol/L (3.5-5.1)
[2023-12-19 08:18] LABS: CHOLESTEROL 119 mg/dL (50-200)
[2023-12-19 08:19] LABS: LDL CHOLESTEROL (ONLY SJRH) 54 mg/dL (5-100)
[2023-12-19 08:22] LABS: HDL CHOLESTEROL 56 mg/dL (40-60)
[2023-12-19 08:31] LABS: BLOOD UREA NITROGEN 7.3 mg/dL (7-18)
[2023-12-19 08:33] LABS: CALCIUM 9.4 mg/dL (8.5-10.1)
[2023-12-19 08:34] LABS: CREATININE 0.5 mg/dL (0.55-1.3)
[2023-12-19] MEDS: DOXYCYCLINE HYCLATE 100 MG CAPSULE PO SCH (09:41)
[2023-12-20 02:47] LABS: PH,URINE 6.5 (5.0-8.0); URINE APPEARANCE CLEAR; URINE BILIRUBIN NEGATIVE (NEGATIVE); URINE COLOR YELLOW; URINE GLUCOSE (UA) NEGATIVE (NEGATIVE); URINE KETONE NEGATIVE (NEGATIVE); URINE LEUK ESTERASE NEGATIVE (NEGATIVE); URINE NITRITE NEGATIVE (NEGATIVE); URINE PROTEIN NEGATIVE (NEGATIVE); URINE UROBILINOGEN 0.2 mg/dL (0.2-1.0)
[2023-12-20 07:14] LABS: EPI CELLS 2.6 /uL (0-25.1); HYALINE CASTS 0.29 /uL (0-3.1); URINE RBC 20.5 /uL (0-23.9); URINE WBC 7.7 /uL (0-25.8)
[2023-12-21 08:12] LABS: BASO % 0.9 % (0-2.0); EOS % 3.8 % (0-4.5); HEMATOCRIT 32.6 % (32.4-45.2); LYMPH % 29.8 % (8-40); MCHC 33.7 g/dl (32.0-36.0); MEAN CELL VOLUME 74.2 fl (80-96); MONO % 8.3 % (3.8-10.2); NEUT % 57.2 % (42.8-82.8); PLATELET COUNT 133 10^3/uL (134-434); RBC 4.39 M/mm3 (3.60-5.2); RDW 13.9 % (11.6-15.6); WHITE BLOOD COUNT 5.3 K/mm3 (4.0-10.0)
[2023-12-21] MEDS ORDERED: guaiFENesin 200 MG/10 ML 10 ML UNIT-DOSE CUPS PO PRN (17:59)
[2023-12-22 09:38] LABS: HEMATOCRIT 31.7 % (32.4-45.2); HEMOGLOBIN 10.5 GM/dL (10.7-15.3); MCH 24.8 pg (25.7-33.7); MCHC 33.2 g/dl (32.0-36.0); MEAN CELL VOLUME 74.7 fl (80-96); MEAN PLT VOLUME 7.8 fl (7.5-11.1); PLATELET COUNT 127 10^3/uL (134-434); RBC 4.24 M/mm3 (3.60-5.2); RDW 14.2 % (11.6-15.6); WHITE BLOOD COUNT 5.4 K/mm3 (4.0-10.0)
[2023-12-22 09:58] LABS: POTASSIUM 3.8 mmol/L (3.5-5.1)
[2023-12-22 10:00] LABS: CALCIUM 8.5 mg/dL (8.5-10.1)
[2023-12-22 10:01] LABS: BLOOD UREA NITROGEN 6.2 mg/dL (7-18); MAGNESIUM 1.6 mg/dL (1.8-2.4)
[2023-12-22 10:03] LABS: CREATININE 0.5 mg/dL (0.55-1.3)
[2023-12-22 10:06] LABS: BILIRUBIN,TOTAL 0.3 mg/dL (0.2-1)
[2023-12-22 10:11] LABS: ALBUMIN 2.7 g/dl (3.4-5.0)
[2023-12-22] MEDS: MAGNESIUM OXIDE 400 MG TABLET (FP) PO ONE (12:00)
[2023-12-22 21:53] VITALS: PULSE 64
[2023-12-23 10:34] LABS: BASO % 0.7 % (0-2.0); EOS % 3.7 % (0-4.5); HEMATOCRIT 31.6 % (32.4-45.2); HEMOGLOBIN 10.5 GM/dL (10.7-15.3); MCH 24.8 pg (25.7-33.7); MCHC 33.3 g/dl (32.0-36.0); MEAN CELL VOLUME 74.7 fl (80-96); MEAN PLT VOLUME 8.4 fl (7.5-11.1); MONO % 8.9 % (3.8-10.2); NEUT % 50.7 % (42.8-82.8); PLATELET COUNT 140 10^3/uL (134-434); RBC 4.24 M/mm3 (3.60-5.2); RDW 14.1 % (11.6-15.6); WHITE BLOOD COUNT 4.7 K/mm3 (4.0-10.0)
[2023-12-23 10:50] LABS: POTASSIUM 3.9 mmol/L (3.5-5.1)
[2023-12-23 11:01] LABS: ALBUMIN 2.6 g/dl (3.4-5.0); BLOOD UREA NITROGEN 6.5 mg/dL (7-18); CALCIUM 8.6 mg/dL (8.5-10.1); MAGNESIUM 1.7 mg/dL (1.8-2.4)
[2023-12-23 11:05] LABS: BILIRUBIN,TOTAL 0.7 mg/dL (0.2-1); CREATININE 0.6 mg/dL (0.55-1.3)
[2023-12-23 13:08] VITALS: BP 132/76; RESP 20; TEMP 98.1
== END 2023-12-23 16:56 | disposition home or self-care (01) | DRG 380 ==
LOC: JER 16:38 → JERBED 21:36 → J7W 12-18 01:52 → OBSVTOIN 12-21 15:44
PROVIDERS: ADMIT Internal Medicine; ATTEND Nurse Practitioner Family
DX: E11.621 Type 2 diabetes mellitus with foot ulcer (principal); L97.519 Non-pressure chronic ulcer of other part of right foot with unspecified severity; E11.42 Type 2 diabetes mellitus with diabetic polyneuropathy; E11.65 Type 2 diabetes mellitus with hyperglycemia; L03.115 Cellulitis of right lower limb; E66.01 Morbid (severe) obesity due to excess calories; Z68.41 Body mass index [BMI] 40.0-44.9, adult; I10 Essential (primary) hypertension; L02.611 Cutaneous abscess of right foot; E03.9 Hypothyroidism, unspecified; E78.5 Hyperlipidemia, unspecified; F31.9 Bipolar disorder, unspecified; L40.9 Psoriasis, unspecified; M54.32 Sciatica, left side; R26.2 Difficulty in walking, not elsewhere classified
CPT/HCPCS: 36415; 73630-TC-RT-FY; 80048; 80053; 80061; 80178; 81003; 82962; 83036; 83735; 85025; 85027; 85651; 86140; 87070; 87186; 87205; 93005; 93010; 97116-GP; 97162-GP; 99285-25; G0378